=== PATIENT | female | born 1970 | race Hispanic/Latino ===

== ENCOUNTER 2019-08-24 15:48 | Emergency (ER) | payer OTHER ==
[~2019-08-24] VITALS: Ht 152.4 cm; Wt 80.7 kg
[2019-08-24] MEDS ORDERED: ONDANSETRON HCL 4 MG ORAL DISINTEGRATING TAB PO ONE (16:45)
[2019-08-24] MEDS ORDERED: ACETAMINOPHEN 325 MG TAB PO ONE (16:45)
[2019-08-24] MEDS ORDERED: ZOFRAN4 MG PO (17:37)
--- NOTE | 2019-08-24 17:41 | NUR ---
NO VOMITING NOTED, PO CHALLENGE COMPLETED, PT STATES SHE DOES FEEL A LITTLE BETTER
--- NOTE | 2019-08-24 17:58 | Emergency Department Note ---
History of Present Illnes History of Present Illness Chief Complaint: COVID PUI History of Present Illness This is a 49 year old female who presents with nausea and vomiting. She's had cough, generalized muscle aches and malaise for 6 days. She states she's had to cover test since that time but has not received the results yet. She denies any martinez diarrhea, however since she says that her stools have been very soft. She says that she vomits whenever she tries to take anything by mouth over the last 48 hours. She is on Cipro for UTI, and is on Zithromax for her respiratory symptoms. Denies a shortness of breath and has no chest pain. She's had no known COVID + contacts or sick contacts. 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 She has been self isolating herself to her room since becoming symptomatic. Denies fever, however states she has been taking nonsteroidal anti-inflammatories for her generalized muscle aches. 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 Any updates have been documented here. Past Medical History Recent Fever: No Clinical Suspicion of Infectio: Yes New/Unexplained Change in Ment: No Past Medical History: None Past Surgical History: None Social History Smoking Cessation: Never Smoker Any Illegal Drug Use: No Review of Systems Review of Systems Constitutional: Reports malaise; Denies fever (Fever in ER, but patient denies fever @ home) EENTM: Reports throat pain; Denies throat swelling, Denies mouth pain, Denies mouth swelling Cardiovascular: Reports no symptoms Respiratory: Reports as per HPI, Reports cough Gastrointestinal: Reports as per HPI, Reports nausea, Reports vomiting; Denies constipation, Denies diarrhea Genitourinary: Reports no symptoms; Denies dysuria (results in some Cipro) Musculoskeletal: Reports no symptoms Neurological: Reports no symptoms Hematological/Lymphatic: Reports no symptoms Review of other systems: All other systems negative Physical Exam Related Data Allergies: Coded Allergies: No Known Allergies (Unverified , 08/24/19) Physical Exam CONSTITUTIONAL Constitutional: Present well-developed, Present well-nourished HENT HENT: Present normocephalic, Present atraumatic, Present oropharynx clear/moist, Present nose normal EYES NECK PULMONARY Pulmonary: Present effort normal, Present breath sounds normal, Present other (nonproductive cough) CARDIOVASCULAR Cardiovascular: Present regular rhythm, Present heart sounds normal, Present capillary refill normal, Present normal rate GASTROINTESTINAL Abdominal: Present soft, Present nontender, Present bowel sounds normal GENITOURINARY SKIN MUSCULOSKELETAL Musculoskeletal: Present ROM normal NEUROLOGICAL Neurological: Present alert, Present oriented x 3, Present no gross motor or sensory deficits PSYCHOLOGICAL Psychological: Present mood/affect normal, Present judgement normal Assessment & Plan Medical Decision Making MDM Patient with a COVID type symptoms including fever cough nausea vomiting. It is on Cipro for UTI. Urinalysis shows small leukocytes but negative nitrites. Patient to continue Cipro and recheck UA when done with antibiotics. Patient on Zithromax for respiratory complaint. Zofran controlled her nausea vomiting in the emergency room and patient tolerated by mouth fluid including by mouth medication. Patient instructed to a self isolated given strict return precautions and to have prompt follow-up. And written pressure for when necessary Zofran was given. #20 Reassessment Reassessment time: 17:31 Reassessment Patient feels better tolerated by mouth in the ER. Assessment & Plan Final Impression: (1) Nausea & vomiting (2) COVID-19 (3) UTI (urinary tract infection) Depart Disposition: HOME, SELF-long term Meds Active Scripts Ondansetron Hcl* (ZOFRAN*) 4 Mg Tablet, 4 MG PO Q6H for Nausea/Vomiting, #20 Prov:VIKAS KIMBROUGH MD 08/24/19 Medications in the ED Acetaminophen 975 mg ONCE ONCE PO Last administered on 08/24/19at 17:17; Admin Dose 975 MG; Start 08/24/19 at 16:45; Stop 08/24/19 at 17:11; Status DC Ondansetron HCl 4 mg ONCE ONCE PO Last administered on 08/24/19at 16:50; Admin Dose 4 MG; Start 08/24/19 at 16:45; Stop 08/24/19 at 17:11; Status DC VIKAS KIMBROUGH MD Aug 24, 2019 17:32
== END 2019-08-24 17:57 | disposition home or self-care (01) ==
LOC: FSED 16:05
DX: U07.1 COVID-19 (principal); R05 Cough; R11.2 Nausea with vomiting, unspecified; N39.0 Urinary tract infection, site not specified; R53.81 Other malaise
CPT/HCPCS: 81003; 99284; Q0162

== ENCOUNTER 2019-09-09 13:45 | Inpatient (IN) | payer OTHER ==
[~2019-09-09] VITALS: Ht 160 cm; Wt 80.7 kg
[~2019-09-09 13:45] MED LIST: ZOFRAN4 MG PO
[2019-09-09] MEDS ORDERED: CEFTRIAXONE SOD 1 GM/NS 50 ML 50 ML IV ONE (14:15)
[2019-09-09] MEDS ORDERED: METHYLPREDNISOLONE SOD SUCC 125 MG/2ML VIAL IV ONE (14:15)
[2019-09-09] MEDS ORDERED: ALBUTEROL SULFATE HFA 8GM INHALATION AEROSOL INH STA (14:25)
[2019-09-09] MEDS ORDERED: METHYLPREDNISOLONE SOD SUCC 125 MG/2ML VIAL ONE (14:41)
[2019-09-09] MEDS ORDERED: ALBUTEROL SULFATE HFA 8GM INHALATION AEROSOL INH ONE (14:41)
--- OUTSIDE RECORDS SUMMARY | 2019-09-09 15:07 | XMS REPORT | Continuity of Care Document ---
Author Author [facility] t Organization [facility] Address [facility] 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 Mechanic Name Role Phone NO, PCP PCP Unavailable Jose Cohn Attphys Elham Johnson Attphys Problems Condition Name Condition Details Condition Category Status Onset Date Resolution Date Last Treatment Date Treating Clinician Comments Source SOB SOB Active 08/24/2016 [facility] Diagnosis Act bebeto 2016-08-24 00:00:00 2016-08-25 11:47:00 amy Dupree FINGER LACERATION FING ER LACERATION Active 12/07/2011 [facility] Active 2011-12-07 16:15:00 2011-12-07 17:46:00 Edouard Dupree Urinary tract infection Problem Active [facility] Infection due to severe acute respiratory syndrome coronavir us 2 (SARS-CoV-2) Problem Active [facility] Nausea and vomiting Problem Active [facility] Scoliosis, unspecified Scol iosis, unspecified 08/28/2016 [facility] Problem 2016-08-28 04:14:51 Ash Dupree Shortness of breath Shor tness of breath 08/28/2016 [facility] Problem 2016-08-28 04:14:51 Ash Dupree Allergies, Adverse Reactions, Alerts Allergy Name Allergy Type Status Severity Reaction(s) Onset Date Inacti ve Date Treating Clinician Comments Source No Known Medication Allergies No Known Medication Allergies Active Edouard Dupree Social History Social Habit Start Date Stop Date Quantity Comments Source Social History 2016-08-26 04:59:00 2016-08-26 04:59:00 Edouard Dupree Sex Assigned At 1970 00:00:00 1970 00:00:00 Female [facility] Medications Ordered Medication Name Filled Medication Name Start Date Stop Da te Current Medication? Ordering Clinician Indication Dosage Frequency Signature (SIG) Comments Components Source Ondansetron Hcl (Zofran*) 4 Mg TABLET Ondansetron Hcl (Zofra n*) 4 Mg TABLET 2019-08-24 17:37:00 Yes 4 Every 6 Hours for Nausea/Vomiting [facility] tetanus-diphtheria toxoids adult intramuscular suspension 2011-12-07 22:18:00 No Parag Amado 0.5 ml, [place]: IM, Dosing Weight 72.727, kg, ONCE, STAT, Start date: 12/07/11 17:18:00, Stop date: 12/07/11 17:18:00 [facility] Tdap 2011-12-07 22:02:00 No Parga Amado 0.5 mL, Route: IM, Dosing Weight 72.727, kg, ONCE, Start date: 12/07/11 17:02:00, Stop date: 12/07/11 17:02:00 [facility] Vital Signs Vital Name Observation Time Observation Value Comments Source Body Temperature 2019-08-24 17:42:00 101.0 [degF] [facility] Weight 2019-08-24 16:00:00 178 [lb_av] [facility] BMI (Body Mass Index) 2019-08-24 16:00:00 34.8 kg/m2 [facility] Weight 2011-12-07 21:56:00 [facility] Height 2011-12-07 21:56:00 152.40 cm [facility] Procedures This patient has no known procedures. Plan of Care Planned Activity Planned Date Details Comments Source Instructions COVID-19: 04/21/2019 [facility] Instructions Urinary Tract Infection - Women [facility] Encounters Start Date/Time End Date/Time Encounter Type Admission Type Attendi [facility] Care Department Encounter ID Source 2019-08-24 16:05:00 2019-08-24 17:57:00 Departed Emergency Room [facility] [id number] [facility] 2019-01-31 11:09:00 2019-01-31 23:59:00 Outpatient Zach Cohn [facility] [id number] 2016-08-25 11:09:00 2016-08-25 23:59:00 Outpatient Pavan Johnson [facility] [id number] Results Test Description Test Time Test Comments Results Result Comments Source BREAST ULTRASOUND BILATERAL 2019-03-31 12:52:32 - BREAST ULTRASOUND BILATERALULTRASOUND OF BOTH BREASTS AND BOTH AXILLA: 03/31/2019CLINICAL: Abnormal mammogram. Comparison is made to exams dated 03/31/2019 mammogram, 09/06/2017 ultrasound biopsy, 09/06/2017 ultrasound, and 08/30/2017 ultrasound - [facility]-. Real-time ultrasound of both breasts and both axilla and clinical breast exam were performed. There is a benign biopsy proven 1 cm fibroadenoma in the right breast at 8 o'clock, 5 cm from the nipple. No abnormalities were seen sonographically in either axilla. Benign cysts and dilated ducts were seen bilaterally. IMPRESSION: BENIGN There is no sonographic evidence of malignancy. Patient has been informed that she has areas of dense breast tissue that could make it difficult to find a small cancer. A screening mammogram and supplemental ultrasound for dense breast tissue is recommended in 1 year.Joyce Dyson M.D. dm/:03/31/2019 12:52:32 Environmental Health Nurse: More [place] , [facility]-letter sent: BIRADS 1-2 Combo FU Letter Ultrasound BI-RADS: 2 Benign DIAG MAMM LEFT [place] CAD DIGITAL 2019-03-31 12:49:38 - DIAG MAMM LEFT [place] CAD DIGITALUNILATERAL LEFT DIGITAL DIAGNOSTIC MAMMOGRAM 3D/2D WITH CAD: 03/31/2019CLINICAL: Abnormal Mammogram. Digital breast tomosynthesis was performed in addition to routine CC and MLO views. Current mammographic images were evaluated by either a [employer] M-Vu or a [email or web address] ImageChecker CAD (computer aided detection system). Comparison is made to exams dated 03/15/2019 mammogram, 09/06/2017 mammogram, and 08/30/2017 mammogram - [facility]-. The tissue of the left breast is extremely dense, which lowers the sensitivity of mammography. No suspicious mass, architectural distortion, malignant type calcification, or lymph node abnormality detected. IMPRESSION: INCOMPLETE: ADDITIONAL IMAGING EVALUATION NEEDEDBilateral ultrasound pending for additional evaluation. Joyce Dyson M.D. dm/:03/31/2019 12:49:38 Entry: [facility] 04/14/2019 11:23:04Imaging Technologist: Niki MATOS, [facility]Maogram BI-RADS: 0 Incomplete: Additional Imaging Evaluation Needed DIAG MAMM LEFT [place] CAD DIGITAL 2019-03-31 12:49:38 - DIAG MAMM LEFT [place] CAD DIGITALUNILATERAL LEFT DIGITAL DIAGNOSTIC MAMMOGRAM 3D/2D WITH CAD: 03/31/2019CLINICAL: Abnormal Mammogram. Digital breast tomosynthesis was performed in addition to routine CC and MLO views. Current mammographic images were evaluated by either a [employer] M-Vu or a [email or web address] ImageBlast Rampcker CAD (computer aided detection system). Comparison is made to exams dated 03/15/2019 mammogram, 09/06/2017 mammogram, and 08/30/2017 mammogram - [facility]-. The tissue of the left breast is extremely dense, which lowers the sensitivity of mammography. No suspicious mass, architectural distortion, malignant type calcification, or lymph node abnormality detected. IMPRESSION: INCOMPLETE: ADDITIONAL IMAGING EVALUATION NEEDEDBilateral ultrasound pending for additional evaluation. Joyce Dyson M.D. dm/:03/31/2019 12:49:38 Entry: [facility] 04/14/2019 11:23:04Imaging Technologist: Niki MATOS, [facility]-Mammogram BI-RADS: 0 Incomplete: Additional Imaging Evaluation Needed SCR MAMM BILATERAL [place]ORT[place] CAD DIGITAL 2019-03-17 13:58:53 - SCR MAMM BILATERAL CHACORT[place] CAD DIGITALBILATERAL DIGITAL SCREENING MAMMOGRAM 3D/2D WITH CAD: 03/15/2019Digital breast tomosynthesis was performed in addition to routine CC and MLO views. Current mammographic images were evaluated by either a [employer] M-Vu or a [email or web address] ImageBlast Rampcker CAD (computer aided detection system). Comparison is made to exams dated 08/17/2017 mammogram, 03/21/2012 mammogram, and 02/10/2011 mammogram - [facility]. There are scattered fibroglandular tissues in both breasts. There is a left breast oval mass on MLO view, superiorly, at posterior depth.No other suspicious mass, architectural distortion, malignant type calcification, or lymph node abnormality detected. IMPRESSION: INCOMPLETE: ADDITIONAL IMAGING EVALUATION NEEDEDLEFT BREAST: Oval mass on MLO view, superiorly, at posterior depth. Ultrasound and possible tomosynthesis spot compression are recommended at this time.Shubham Lyle M.D. qn/:03/17/2019 13:58:53 Entry: - 03/22/2019 07:50:15copy to: Meliton Amado MD, ph: [phone], fax: [phone] Technologist: Mana MATOS, [facility]FW[facility] sent: Additional Imaging Mammogram BI-RADS: 0 Incomplete: Additional Imaging Evaluation Needed
--- OUTSIDE RECORDS SUMMARY | 2019-09-09 15:07 | XMS REPORT | Continuity of Care Document ---
Author Author Edouard Dupree IPexpert JOHNNYAaron Whittaker [facility] [employer] Address Unknown Phone Unavailable Care Team Providers Care Graphite Disk Assembler Name Role Phone [facility] [employer] Unavailable Un available Problems Problem Status Onset Date Classification Date Reported Comments Source SOB Active 0 08/24/2016 [facility] FINGER LACERATION Active 12/07/2011 [facility] Scoliosis, unspecified 08/28/2016 [facility] Shortness of breath 08/28/2016 [facility] Medications Medication Details Route Status Patient Instructions Ordering Provider Order Date Source tetanus-diphtheria toxoids adult intramu scular suspension 0.5 ml, Route: IM, Dosing Weight 72.727, kg, ONCE, STAT, Start date: 12/07/11 17:18:00, Stop date: 12/07/11 17:18:00 IM No Longer Active Amado 12/07/2011 [facility] Tdap 0.5 mL, Route: IM, Dosing Weight 72.727, kg, ONCE, Start date: 12/07/11 17:02:00, Stop date: 12/07/11 17:02:00 IM No Longer Active Amado 12/07/2011 [facility] Allergies, Adverse Reactions, Alerts Substance Category Reaction Severity Reaction type Status Date Reported Comments Source No Known Medication Allergies Assertion Drug aller gy CONNIE [facility] Immunizations Immunization Date Given Site Status Last Updated Comments Source tetanus-diphtheria toxoids 02/2011 completed F minnien [facility] tetanus-diphtheria toxoids 02/2011 Left Deltoid completed Jose [facility] tetanus-diphtheria toxoids 02/2011 Left Deltoid completed Jose CONNIE [place] Results No Data Provided for This Section Pathology Reports No Data Provided for This Section Diagnostic Reports Report Value Date Source Hand 3 views DX EXAM: Hand 3 v iews DX HISTORY: - M79.641 Pain in right hand COMPARISON: None 3 views of the right hand. No fracture or dislocation is seen. No radiographically apparent degenerative change is seen. IMPRESSION: No acute abnormality. 01/31/2019 [facility] [place] Chest 2 views DX Study: Chest 2 views DX 08/25/2016 10:30 AM CDT Clinical Indication: shortness of breath - shortness of breath; Comparison: None. FINDINGS: Rotoscoliosis. The cardiomediastinal silhouette and pulmonary vasculature are within normal limits for projection and degree of inspiration. No lobar consolidation, effusion, or pneumothorax. No pleural abnormalities are seen. No acute bony abnormalities. IMPRESSION: No acute intrathoracic abnormalities. SL: [id number] 08/25/2016 [facility] Consultation Notes No Data Provided for This Section Discharge Summaries No Data Provided for This Section History and Physicals No Data Provided for This Section Vital Signs Vital Sign Value Date Comments Source Weight 72.727 12/07/2011 [facility] Height 152.40 cm 12/07/2011 [facility] Encounters Location Location Details Encounter Type Encounter Number Reason For Visit Attending Provider ADM Date DC Date Status Source [facility] Emergency [id number] COCO KHAN 12/07/2011 12/07/2011 Discharged [facility] Outpatient [id number] Pavan Johnson 08/25/2016 08/26/2016 [facility] [place] [facility] [id number] Zach Cohn 01/31/2019 02/01/2019 [facility] [place] Procedures No Data Provided for This Section Assessment and Plan No Data Provided for This Section Plan of Care No Data Provided for This Section Social History Social History Date Source No data available for this section 02/01/2019 CONN[facility] [place] No data available for this section 08/26/2016 [facility] Family History No Data Provided for This Section Advance Directives No Data Provided for This Section Functional Status No Data Provided for This Section
--- NOTE | 2019-09-09 15:16 | Diagnostic Imaging Report ---
X-ray chest frontal view History: Covid positive. Cough. Weakness. Comparison: None Findings: Significant rotation on this exam. Central airways: Unremarkable Cardiac silhouette: Unremarkable Mediastinal silhouettes: Unremarkable Pleura: No pleural effusion, pneumothorax or thickening Diaphragms: Unremarkable Lungs: Bilateral diffuse axial interstitial infiltrates. This is consistent with the possibility of interstitial pneumonitis such as a viral pneumonia. Skeletal structures: Unremarkable Extrathoracic soft tissues: Unremarkable Impression: Suboptimal exam. Suspected bilateral interstitial pneumonitis. Signed by: Taurus Strange MD on 09/09/2019 3:13 PM
[2019-09-09 15:27] LABS: BASOPHILS # (AUTO) 0.1 (0.0-0.1); BASOPHILS % 0.3 % (0.0-1.0); EOSINOPHILS % 0.3 % (0.0-6.0); HEMATOCRIT 39.6 % (34.2-44.1); HEMOGLOBIN 13.9 g/dL (12.0-16.0); LYMPHOCYTES % 18.9 % (18.0-39.1); MEAN CORPUSCULAR HEMOGLOBIN 32.2 pg (28-32); MEAN CORPUSCULAR HGB CONC 35.1 g/dL (31-35); MEAN CORPUSCULAR VOLUME 91.7 fL (81-99); MONOCYTES # (AUTO) 1.5 (0.2-0.8); MONOCYTES % 9.2 % (4.4-11.3); NEUTROPHILS # (AUTO) 11.2 (2.1-6.9); NEUTROPHILS % 69.7 % (38.7-80.0); PLATELET COUNT 532 x10e3/uL (140-360); RED BLOOD COUNT 4.32 x10e6/uL (3.6-5.1); RED CELL DISTRIBUTION WIDTH 12.6 % (11.7-14.4)
[2019-09-09 15:38] LABS: INR 0.89; PROTHROMBIN TIME 12.5 seconds (11.9-14.5)
[2019-09-09 15:43] LABS: PARTIAL THROMBOPLASTIN TIME 21.6 seconds (23.8-35.5)
[2019-09-09 15:46] LABS: ALANINE AMINOTRANSFERASE 49 IU/L (0-55); ALBUMIN 3.3 g/dL (3.5-5.0); ALBUMIN/GLOBULIN RATIO 0.9 (0.8-2.0); ALKALINE PHOSPHATASE 70 IU/L (40-150); ANION GAP 13.7 mmol/L (8-16); BLOOD UREA NITROGEN 19 mg/dL (7-26); BUN/CREATININE RATIO 25 (6-25); CALCIUM 8.6 mg/dL (8.4-10.2); CARBON DIOXIDE 24 mmol/L (22-29); CHLORIDE 107 mmol/L (98-107); CREATINE KINASE 22 IU/L (29-168); CREATININE, SERUM 0.76 mg/dL (0.57-1.11); EST GLOMERULAR FILTRATION RATE > 60 ML/MIN (60-); GLUCOSE 92 mg/dL (74-118); MAGNESIUM 1.9 MG/DL (1.3-2.1); POTASSIUM 3.7 mmol/L (3.5-5.1); SODIUM 141 mmol/L (136-145)
--- NOTE | 2019-09-09 16:07 | Emergency Department Note ---
History of Present Illnes History of Present Illness Chief Complaint: sob, wheezing , chest tightness History of Present Illness This is a 49 year old female . Historian: Patient Arrival Mode: Car Additional Treatment BACK END ARCHITECT: was doing well until 08/17 then itchy throat, f/c, History limited by: condition of the patient Web Press Operator Required: No Onset (how long ago): day(s) (3) Location: bilateral chest Quality: tightness Radiation: Reports non-radiation Severity: moderate Onset quality: gradual Duration (how long): day(s) (3) Timing of current episode: constant Progression: worsening Chronicity: new Associated symptoms: Reports cough, Reports nausea/vomiting, Reports shortness of breath Risk factors: dx with covid on 08/21, chest chest on 09/05 showed bilat pneumonia/h/o asthma Past Medical/Family History Physician Review I have reviewed the patient's past medical and family history. Any updates have been documented here. Past Medical History Recent Fever: No Clinical Suspicion of Infectio: Yes New/Unexplained Change in Ment: No Past Medical History: Asthma Past Surgical History: None Social History Smoking Cessation: Never Smoker Counseling Performed: No Alcohol Use: Social Any Illegal Drug Use: No TB Exposure/Symptoms: No Physically hurt or threatened: No Family History Family history of heart diseas: No Other Any Pre-Existing Lines (PICC,: No Is patient up to date on immun: No Review of Systems Review of Systems Constitutional: Reports as per HPI EENTM: Reports as per HPI Cardiovascular: Reports as per HPI Respiratory: Reports as per HPI, Reports wheezing Gastrointestinal: Reports as per HPI Genitourinary: Reports no symptoms Musculoskeletal: Reports no symptoms Integumentary: Reports no symptoms Neurological: Reports no symptoms Psychological: Reports no symptoms Endocrine: Reports no symptoms Hematological/Lymphatic: Reports no symptoms Review of other systems: All other systems negative Physical Exam Related Data Allergies: Coded Allergies: No Known Allergies (Unverified , 08/24/19) Triage Vital Signs Vital Signs Date Time Temp Pulse Resp B/P (MAP) Pulse Ox O2 Delivery O2 Flow Rate FiO2 09/09/19 13:45 98.7 81 18 124/94 98 Room Air Vital signs reviewed: Yes Physical Exam CONSTITUTIONAL Constitutional: Present well-developed, Present well-nourished HENT HENT: Present normocephalic, Present atraumatic, Present oropharynx clear/moist, Present nose normal HENT L/R: Present left ext ear normal, Present right ext ear normal EYES Eyes: Reports PERRL, Reports conjunctivae normal NECK Neck: Present ROM normal, Present supple PULMONARY Pulmonary: Present effort normal, Present other (bilateral wheezes); Absent respiratory distress CARDIOVASCULAR Cardiovascular: Present regular rhythm, Present heart sounds normal, Present capillary refill normal, Present normal rate GASTROINTESTINAL Abdominal: Present soft, Present nontender, Present bowel sounds normal GENITOURINARY Genitourinary: Present exam deferred SKIN Skin: Present warm, Present dry MUSCULOSKELETAL Musculoskeletal: Present ROM normal NEUROLOGICAL Neurological: Present alert, Present oriented x 3, Present no gross motor or sensory deficits PSYCHOLOGICAL Psychological: Present mood/affect normal, Present judgement normal Results Laboratory Result Diagram: 09/09/19 1406 09/09/19 1406 Laboratory Laboratory Tests Test 09/09/19 14:38 09/09/19 14:06 White Blood Count 15.99 x10e3/uL (4.8-10.8) Red Blood Count 4.32 x10e6/uL (3.6-5.1) Hemoglobin 13.9 g/dL (12.0-16.0) Hematocrit 39.6 % (34.2-44.1) Mean Corpuscular Volume 91.7 fL (81-99) Mean Corpuscular Hemoglobin 32.2 pg (28-32) Mean Corpuscular Hemoglobin Concent 35.1 g/dL (31-35) Red Cell Distribution Width 12.6 % (11.7-14.4) Platelet Count 532 x10e3/uL (140-360) Neutrophils (%) (Auto) 69.7 % (38.7-80.0) Lymphocytes (%) (Auto) 18.9 % (18.0-39.1) Monocytes (%) (Auto) 9.2 % (4.4-11.3) Eosinophils (%) (Auto) 0.3 % (0.0-6.0) Basophils (%) (Auto) 0.3 % (0.0-1.0) Neutrophils # (Auto) 11.2 (2.1-6.9) Lymphocytes # (Auto) 3.0 (1.0-3.2) Monocytes # (Auto) 1.5 (0.2-0.8) Eosinophils # (Auto) 0.0 (0.0-0.4) Basophils # (Auto) 0.1 (0.0-0.1) Absolute Immature Granulocyte (auto 0.25 x10e3/uL (0-0.1) Prothrombin Time 12.5 seconds (11.9-14.5) Prothromb Time International Ratio 0.89 Activated Partial Thromboplast Time 21.6 seconds (23.8-35.5) Sodium Level 141 mmol/L (136-145) Potassium Level 3.7 mmol/L (3.5-5.1) Chloride Level 107 mmol/L (98-107) Carbon Dioxide Level 24 mmol/L (22-29) Anion Gap 13.7 mmol/L (8-16) Blood Urea Nitrogen 19 mg/dL (7-26) Creatinine 0.76 mg/dL (0.57-1.11) Estimat Glomerular Filtration Rate > 60 ML/MIN (60-) BUN/Creatinine Ratio 25 (6-25) Glucose Level 92 mg/dL (74-118) Lactic Acid Level 1.5 mmol/L (0.5-2.0) Calcium Level 8.6 mg/dL (8.4-10.2) Magnesium Level 1.9 MG/DL (1.3-2.1) Total Bilirubin 0.6 mg/dL (0.2-1.2) Aspartate Amino Transf (AST/SGOT) 16 IU/L (5-34) Alanine Aminotransferase (ALT/SGPT) 49 IU/L (0-55) Alkaline Phosphatase 70 IU/L (40-150) Creatine Kinase 22 IU/L (29-168) Creatine Kinase MB 0.50 ng/mL (0-5.0) Troponin I < 0.001 ng/mL (0-0.300) Total Protein 7.1 g/dL (6.5-8.1) Albumin 3.3 g/dL (3.5-5.0) Globulin 3.8 g/dL (2.3-3.5) Albumin/Globulin Ratio 0.9 (0.8-2.0) Imaging Imaging results reviewed: Yes Impressions [place] [address] Patient Name: JOHNNY CARTY MR #: [id number] : 1970 Age/Sex: 49/F Req #: [id number] Adm Physician: Ordered by: CHARLES CAM Report #: [id number] Location: [facility] Room/Bed: Procedure: [id number] HOPD/CXR 1 VEW - HOPD Exam Date: 09/09/19 Exam Time: 1443 REPORT STATUS: Signed X-ray chest frontal view History: Covid positive. Cough. Weakness. Comparison: None Findings: Significant rotation on this exam. Central airways: Unremarkable Cardiac silhouette: Unremarkable Mediastinal silhouettes: Unremarkable Pleura: No pleural effusion, pneumothorax or thickening Diaphragms: Unremarkable Lungs: Bilateral diffuse axial interstitial infiltrates. This is consistent with the possibility of interstitial pneumonitis such as a viral pneumonia. Skeletal structures: Unremarkable Extrathoracic soft tissues: Unremarkable Impression: Suboptimal exam. Suspected bilateral interstitial pneumonitis. Signed by: Loida Cronin MD on 09/09/2019 3:13 PM Dictated By: LOIDA CRONIN MD 12 Transcribed By: CARLEE on 09/09/19 151 COPY TO: CHARLES CAM~ Procedures 12 Lead ECG Interpretation ECG Interpretation : ECG: ECG 1 Web Press Operator: Interpreted by ED physician Date: Sep 09, 2019 Time: 13:55 Prior ECG tracings: reviewed Rhythm: sinus rhythm Rate: normal QRS axis: normal ST segments normal: Yes T waves normal: Yes Q waves: all Clinical Impression: normal ECG Critical Care Time Comments SPOKE TO DR CONSTANTINO AT 1550HRS AND ACCEPTS ADMISSION OF PT Assessment & Plan Medical Decision Making MDM admit Reassessment Reassessment time: 18:00 Reassessment symptoms improved Assessment & Plan Final Impression: (1) Asthma exacerbation (2) Bilateral pneumonia (3) COVID-19 Depart Disposition: ADMITTED Last Vital Signs Date Time Temp Pulse Resp B/P (MAP) Pulse Ox O2 Delivery O2 Flow Rate FiO2 09/09/19 13:45 98.7 81 18 124/94 98 Room Air Home Meds Active Scripts Ondansetron Hcl* (ZOFRAN*) 4 Mg Tablet, 4 MG PO Q6H for Nausea/Vomiting, #20 Prov:VIKAS KIMBROUGH MD 08/24/19 Medications in the ED Ceftriaxone Sodium 50 ml @ 100 mls/hr ONCE ONCE IV Last administered on 09/09/19at 14:50; Admin Dose 100 MLS/HR; Start 09/09/19 at 14:15; Stop 09/09/19 at 1 4:45; Status DC Methylprednisolone Sodium Succinate 125 mg ONCE ONCE IV Last administered on 09/09/19at 14:50; Admin Dose 125 MG; Start 09/09/19 at 14:15; Stop 09/09/19 at 14:25; Status DC Albuterol 1 gm ONCE STAT INH Last administered on 09/09/19at 15:00; Admin Dose 1 GM; Start 09/09/19 at 14:25; Stop 09/09/19 at 14:27; Status DC Methylprednisolone Sodium Succinate 125 mg STK-MED ONCE .ROUTE ; Start 09/09/19 at 14:41; Stop 09/09/19 at 14:35; Status DC Albuterol 8 gm STK-MED ONCE INH ; Start 09/09/19 at 14:41; Stop 09/09/19 at 14:36; Status DC CHARLES CAM Sep 09, 2019 16:06
[2019-09-09] MEDS ORDERED: ALBUTEROL SULF 0.083% NEB SOLN 3 ML NEB NEB SCH (16:30)
--- OUTSIDE RECORDS SUMMARY | 2019-09-09 16:44 | XMS REPORT | Continuity of Care Document ---
Author Author Edouard Dupree [employer] JOHNNYAaron Whittaker [facility] [employer] Address Unknown Phone Unavailable Care Team Providers Care Pharmacy Technician Trainee Name Role Phone [facility] [employer] Information Search Initiatives Unavailable Un available Problems Problem Status Onset Date Classification Date Reported Comments Source SOB Active 0 08/24/2016 [facility] FINGER LACERATION Active 12/07/2011 [facility] Scoliosis, unspecified 08/28/2016 [facility] Shortness of breath 08/28/2016 [facility] Medications Medication Details Route Status Patient Instructions Ordering Provider Order Date Source tetanus-diphtheria toxoids adult intramu scular suspension 0.5 ml, Route: IM, Dosing Weight 72.727, kg, ONCE, STAT, Start date: 12/07/11 17:18:00, Stop date: 12/07/11 17:18:00 IM No Longer Active Amado 12/07/2011 [facility] Tdap 0.5 mL, Route: IM, Dosing Weight 72.727, kg, ONCE, Start date: 12/07/11 17:02:00, Stop date: 12/07/11 17:02:00 IM No Longer Active Amado 12/07/2011 [facility] Allergies, Adverse Reactions, Alerts Substance Category Reaction Severity Reaction type Status Date Reported Comments Source No Known Medication Allergies Assertion Drug aller gy CONNIE Mon[place] Immunizations Immunization Date Given Site Status Last Updated Comments Source tetanus-diphtheria toxoids 02/2011 completed F minnien [facility] tetanus-diphtheria toxoids 02/2011 Left Deltoid completed Jose [...] seen. IMPRESSION: No acute abnormality. 01/31/2019 [facility] [place] Chest 2 views DX Study: Chest 2 views DX 08/25/2016 10:30 AM CDT Clinical Indication: shortness of breath - shortness of breath; Comparison: None. FINDINGS: Rotoscoliosis. The cardiomediastinal silhouette and pulmonary vasculature are within normal limits for projection and degree of inspiration. No lobar consolidation, effusion, or pneumothorax. No pleural abnormalities are seen. No acute bony abnormalities. IMPRESSION: No acute intrathoracic abnormalities. SL: [id number] 08/25/2016 [facility] Consultation Notes No Data Provided for This Section Discharge Summaries No Data Provided for This Section History and Physicals No Data Provided for This Section Vital Signs Vital Sign Value Date Comments Source Weight 72.727 12/07/2011 [facility] Height 152.40 cm 12/07/2011 [facility] Encounters Location Location Details Encounter Type Encounter Number Reason For Visit Attending Provider ADM Date DC Date Status Source [facility] Emergency [id number] COCO KHAN 12/07/2011 12/07/2011 Discharged [facility] Outpatient [id number] Pavan Johnson 08/25/2016 08/26/2016 [facility] [place] [facility] [id number] Zach Cohn 01/31/2019 02/01/2019 CON[place] [place] Procedures No Data Provided for This Section Assessment and Plan No Data Provided for This Section Plan of Care No Data Provided for This Section Social History Social History Date Source No data available for this section 02/01/2019 CONNIE [place] No data available for this section 08/26/2016 [facility] Family History No Data Provided for This Section Advance Directives No Data Provided for This Section Functional Status No Data Provided for This Section
--- OUTSIDE RECORDS SUMMARY | 2019-09-09 16:44 | XMS REPORT | Continuity of Care Document ---
Author Author [facility] t Organization [facility] Address Critical access hospital [address] [place] [address] Phone Unavailable Care Team Providers Care Auto Body Straightener Name Role Phone NO, PCP PCP Unavailable Malgorzata CAM Attphys Unavailable Jose Cohn Attphys Elham Johnson Attphys Problems Condition Name Condition Details Condition Category Status Onset Date Resolution Date Last Treatment Date Treating Clinician Comments Source SOB SOB Active 08/24/2016 [facility] Diagnosis Act bebeto 2016-08-24 00:00:00 2016-08-25 11:47:00 M amy Dupree FINGER LACERATION FING ER LACERATION Active 12/07/2011 [facility] Active 2011-12-07 16:15:00 2011-12-07 17:46:00 Edouard Dupree Urinary tract infection Problem Active [facility] Infection due to severe acute respiratory syndrome coronavir us 2 (SARS-CoV-2) Problem Active [facility] Nausea and vomiting Problem Active [facility] Scoliosis, unspecified Scol iosis, unspecified 08/28/2016 [facility] Problem 2016-08-28 04:14:51 [facility] Shortness of breath Shor tness of [...] Source Social History 2016-08-26 04:59:00 2016-08-26 04:59:00 [facility] Sex Assigned At 1970 00:00:00 1970 00:00:00 Female [facility] Medications Ordered Medication Name Filled Medication Name Start Date Stop Da te Current Medication? Ordering Clinician Indication Dosage Frequency Signature (SIG) Comments Components Source Ondansetron Hcl (Zofran*) 4 Mg TABLET Ondansetron Hcl (Zofra n*) 4 Mg TABLET 2019-08-24 17:37:00 Yes 4 Every 6 Hours for Nausea/Vomiting [facility] tetanus-diphtheria toxoids adult intramuscular suspension 2011-12-07 22:18:00 No Parag Amado 0.5 ml, Ro aj: IM, Dosing Weight 72.727, kg, ONCE, STAT, Start date: 12/07/11 17:18:00, Stop date: 12/07/11 17:18:00 [facility] Tdap 2011-12-07 22:02:00 No Parag Amado 0.5 mL, Route: IM, Dosing Weight 72.727, kg, ONCE, Start date: 12/07/11 17:02:00, Stop date: 12/07/11 17:02:00 [facility] Vital Signs Vital Name Observation Time Observation Value Comments Source Body Temperature 2019-08-24 17:42:00 101.0 [degF] [facility] Weight 2019-08-24 16:00:00 178 [lb_av] [facility] BMI (Body Mass Index) 2019-08-24 16:00:00 34.8 kg/m2 [facility] Weight 2011-12-07 21:56:00 [facility] Height 2011-12-07 21:56:00 152.40 cm [facility] Procedures This patient has no known procedures. Plan of Care Planned Activity Planned Date Details Comments Source Instructions COVID-19: 04/21/2019 [facility] Instructions Urinary Tract Infection - Women [facility] Encounters Start Date/Time End Date/Time Encounter Type Admission Type Attendi [facility] Care Department Encounter ID Source 2019-08-24 16:05:00 2019-08-24 17:57:00 Departed Emergency Room [facility] [id number] [facility] 2019-01-31 11:09:00 2019-01-31 23:59:00 [facility] [id number] 2016-08-25 11:09:00 2016-08-25 23:59:00 Outpatient Pavan [facility] [id number] Results Test Description Test Time Test Comments Results Result Comments Source CXR 1 W - HOPD 2019-09-09 15:10:00 [place] [address] Patient Name: JOHNNY CARTY MR #: [id number] : 1970 Age/Sex: 49/F Req #: [id number] Adm Physician: Ordered by: CHARLES CAM Report #: [id number] Location: [facility] Room/Bed: Procedure: [id number] HOPD/CXR 1 [facility] Exam Date: 09/09/19 Exam Time: 1443 REPORT STATUS: Signed X-ray chest frontal view History: Covid positive. Cough. Weakness. Comparison: None Findings: Significant rotation on this exam. Central airways: Unremarkable Cardiac silhouette: Unremarkable Mediastinal silhouettes: Unremarkable Pleura: No pleural effusion, pneumothorax or thickening Diaphragms: Unremarkable Lungs: Bilateral diffuse axial interstitial infiltrates. This is consistent with the possibility of interstitial pneumonitis such as a viral pneumonia. Skeletal structures: Unremarkable Extrathoracic soft tissues: Unremarkable Impression: Suboptimal exam. Suspected bilateral interstitial pneumonitis. Signed by: Taurus Cronin MD on 09/09/2019 3:13 PM Dictated By: TAURUS CRONIN MD 12 Transcribed By: CARLEE on 09/09/193 COPY TO: DORINACHARLESFRANCK MARTÍNEZ BREAST ULTRASOUND BILATERAL 2019-03-31 12:52:32 - BREAST ULTRASOUND BILATERALULTRASOUND OF BOTH BREASTS AND BOTH AXILLA: 03/31/2019CLINICAL: Abnormal mammogram. Comparison is made to exams dated 03/31/2019 mammogram, 09/06/2017 ultrasound biopsy, 09/06/2017 ultrasound, and [facility]30[facility] Real-time ultrasound of both breasts and both [...] in 1 year.Joyce Dyson M.D. dm/:03/31/2019 12:52:32 Building Maintenance Engineer: [place] , [facility] sent: BIRADS 1-2 Combo FU Letter Ultrasound BI-RADS: 2 Benign DIAG MAMM LEFT [place] CAD DIGITAL 2019-03-31 12:49:38 - DIAG MAMM LEFT [place] CAD DIGITALUNILATERAL LEFT DIGITAL DIAGNOSTIC MAMMOGRAM 3D/2D WITH CAD: 03/31/2019CLINICAL: Abnormal Mammogram. Digital breast tomosynthesis was performed in addition to routine CC and MLO views. Current mammographic images were evaluated by either a [employer] M-Vu or a [employer] ImageChecker CAD (computer aided detection system). Comparison is made to exams dated 03/15/2019 mammogram, 09/06/2017 mammogram, and 08/30/2017 [facility]. The tissue of the left breast is extremely dense, which lowers the sensitivity of mammography. No suspicious mass, architectural distortion, malignant type calcification, or lymph node abnormality detected. IMPRESSION: INCOMPLETE: ADDITIONAL IMAGING EVALUATION NEEDEDBilateral ultrasound pending for additional evaluation. Joyce Dyson M.D. dm/:03/31/2019 12:49:38 Entry: [facility] 04/14/2019 11:23:04Imaging Technologist: Niki MATOS [facility]-Mamm[facility] BI-RADS: 0 Incomplete: Additional Imaging Evaluation Needed DIAG MAMM LEFT [place] CAD DIGITAL 2019-03-31 12:49:38 - DIAG MAMM LEFT [place] CAD DIGITALUNILATERAL LEFT DIGITAL DIAGNOSTIC MAMMOGRAM 3D/2D WITH CAD: 03/31/2019CLINICAL: Abnormal Mammogram. Digital breast tomosynthesis was performed in addition to routine CC and MLO views. Current mammographic images were evaluated by either a [employer] M-Vu or a [employer]guana[employer]ee in Chinacker CAD (computer aided detection system). Comparison is made to exams dated 03/15/2019 mammogram, 09/06/2017 mammogram, and 08/30/2017 [facility]. The tissue of the left breast is extremely dense, which lowers the sensitivity of mammography. No suspicious mass, architectural distortion, malignant type calcification, or lymph node abnormality detected. IMPRESSION: INCOMPLETE: ADDITIONAL IMAGING EVALUATION NEEDEDBilateral ultrasound pending for additional evaluation. Joyce Dyson M.D. dm/:03/31/2019 12:49:38 Entry: [facility] 04/14/2019 11:23:04Imaging Technologist: Marjorie Landeros [facility]-Mammogram BI-RADS: 0 Incomplete: Additional Imaging Evaluation Needed SCR MAMM BILATERAL [place] CAD DIGITAL 2019-03-17 13:58:53 - SCR MAMM BILATERAL [place] CAD DIGITALBILATERAL DIGITAL SCREENING MAMMOGRAM 3D/2D WITH CAD: 03/15/2019Digital breast tomosynthesis was performed in addition to routine CC and MLO views. Current mammographic images were evaluated by either a [employer] M-Vu or a [employer] ImageIguanaBee in Chinacker CAD (computer aided detection system). Comparison is made to exams dated 08/17/2017 mammogram, 03/21/2012 mammogram, and 02/10/2011 [facility]. There are scattered fibroglandular tissues in both [...] 03/22/2019 07:50:15copy to: Meliton Amado MD, ph: [phone], fax: [phone] Technologist: Mana MATOS, [facility]-FWletter sent: Additional Imaging Mammogram BI-RADS: 0 Incomplete: Additional Imaging Evaluation Needed
[2019-09-09] MEDS ORDERED: TEMAZEPAM 7.5 MG CAP PO PRN (17:30)
[2019-09-09] MEDS ORDERED: ONDANSETRON HCL INJ 2MG/ML 2ML 2 MG/ML VIAL IV PRN (17:30)
[2019-09-09] MEDS ORDERED: ACETAMINOPHEN 325 MG TAB PO PRN (17:30)
[2019-09-09] MEDS ORDERED: HYDRALAZINE HCL 20 MG/ML VIAL IV PRN (17:30)
[2019-09-09] MEDS ORDERED: POLYETHYLENE GLYCOL 3350 17 GM PACK PO PRN (17:30)
[2019-09-09] MEDS ORDERED: IPRATROPIUM BROMIDE 0.02% 2.5 ML NEB NEB SCH (19:00)
--- NOTE | 2019-09-09 19:08 | NUR ---
RECEIVED PATIENT FROM [facility]. ALERT AND ORIENTED. PATIENT HAS NO COMPLAIN OF SHORTNESS OF BREATH. ASSISTED TO BED. BED IN LOWEST POSITION, LOCKED AND SIDE RAILS UP.
[2019-09-09 20:00] VITALS: BP 117/70
[2019-09-09] MEDS ORDERED: CETIRIZINE HCL5 MG PO (20:26)
[2019-09-09] MEDS ORDERED: COMBIVENT RESPIM4 GM IH (20:26)
[2019-09-09] MEDS ORDERED: ZINC SULFATE220 MG PO (20:26)
[2019-09-09] MEDS ORDERED: PROVENTIL HFA6.7 GM INH (20:26)
[2019-09-09] MEDS ORDERED: VITAMIN C500 M1 PO (20:26)
[2019-09-09] MEDS ORDERED: DEXAMETHASONE4 MG PO (20:26)
[2019-09-09 20:33] VITALS: BP 117/70
[2019-09-09] MEDS ORDERED: TEMAZEPAM 15 MG CAP PO PRN (21:00)
[2019-09-09] MEDS ORDERED: ALBUTEROL SULFATE HFA 8GM INHALATION AEROSOL INH PRN (21:15)
[2019-09-09] MEDS: METHYLPREDNISOLONE SOD SUCC 125 MG/2ML VIAL IV SCH (21:34)
--- NOTE | 2019-09-09 21:50 | NUR ---
CONSULTATION FOR DR. JULIO CALLED THRU ANSWERING SERVICE. WAITING FOR CALL BACK.
[2019-09-09 22:17] VITALS: BP 117/70
[2019-09-09 23:37] LABS: CREATINE KINASE 18 IU/L (29-168)
[2019-09-10] VITALS (8 sets, daily range): BP systolic 114–128; BP diastolic 72–88
--- NOTE | 2019-09-10 02:36 | History and Physical ---
PRIMARY CARE PHYSICIAN: Dr. Zach Cohn. CONSULTING PHYSICIANS: Dr. Miles Olivares and Dr. Abilio Paige. CHIEF COMPLAINT: Cough. HISTORY OF PRESENT ILLNESS: The patient is a 49-year-old female, who admitted to the emergency department with 3-day complaints of shortness of breath, wheezing, chest tightness, that all began with having an itchy throat on 08/18/2019. She tested positive that week on 08/17. She reports that on Sunday her COVID test was negative. PAST MEDICAL HISTORY: Asthmatic bronchitis. PAST SURGICAL HISTORY: Tonsillectomy. FAMILY HISTORY: Both mother and father had heart problems and diabetes. 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 She lives with her and children. She denies any previous use of tobacco, alcohol, or illicit drugs. ALLERGIES: NO KNOWN ALLERGIES. REVIEW OF SYSTEMS: She states she has not had a fever in the last 5 days. Denies chills. She has lost her sense of taste and smell. Otherwise, no complaints of eyes, ears, nose, or throat at present. She has been having coughing, however, no shortness of breath. Currently not wearing oxygen. Denies any problems with genitourinary, psychiatric, integumentary, allergic, hematologic, or lymphatic systems. CARDIOVASCULAR: She does have palpitations at times. GASTROINTESTINAL: Denies any nausea, vomiting, diarrhea, or constipation. MUSCULOSKELETAL: Tired. NEUROLOGIC: Dizziness this morning, but none now. ENDOCRINE: Denies any history of diabetes. HOME MEDICATIONS: She takes vitamin C 500 mg daily, dexamethasone 6 mg twice a day, zinc sulfate 220 mg daily, Proventil HFA t.i.d. p.r.n. for shortness of breath, cetirizine 10 mg daily, and Combivent Respimat 4 g inhaler. PHYSICAL EXAMINATION: VITAL SIGNS: Temperature 98.7, blood pressure 122/70, heart rate was 114 and now 71, respirations was 30 and now 18, oxygen saturation 97%. Height 5 feet 0 inches. Weight 170 pounds, BMI of 34.75. GENERAL: Supine, in no acute distress. LUNGS: Generally clear. No supplemental oxygen. No elevated work of breathing present. HEENT: EOMI. NECK: Supple. CARDIOVASCULAR: Regular rate and rhythm. No murmur. ABDOMEN: Bowel sounds positive. Soft, obese. No guarding. EXTREMITIES: No pitting edema. No clubbing, cyanosis, or notable swelling. No signs of DVT. NEUROLOGICAL: GCS 15. Nonfocal. LABORATORY DATA: WBCs 15.99, hemoglobin 13.9, hematocrit 39.6, and platelets 532. PT 12.5, INR 0.89, PTT 21.6. D-dimer 2.11. Chemistry within normal limits. Lactic acid 1.5. LFTs within normal limits. Troponin I less than 0.001. B-type natriuretic peptide 11.3. Total protein 7.1, albumin 3.3. Coronavirus PCR collected today is pending. Blood cultures x2 collected today are pending. Chest x-ray done today shows suboptimal exam, suspected bilateral interstitial pneumonitis. A 12-lead EKG had shown normal sinus rhythm. ASSESSMENT AND PLAN: 1. Bilateral viral community-acquired pneumonia due to coronavirus disease 2018. Continue with steroids, methylprednisolone, Rocephin, azithromycin, albuterol inhalation, vitamin C, vitamin D, and zinc sulfate. 2. Acute asthma exacerbation. Home Combivent Respimat and Proventil HFA resumed. 3. Obesity with BMI of 34.75. Dietary restrictions. Billing code 25572. Time spent 60 minutes. Dictated by Reinaldo Paiz NP MD RASHIDA Contreras/ETTAL /[id number]
[2019-09-10] MEDS: METHYLPREDNISOLONE SOD SUCC 125 MG/2ML VIAL IV SCH ×2 (05:49→13:58)
[2019-09-10 06:00] LABS: BASOPHILS % 0.2 % (0.0-1.0); HEMATOCRIT 37.3 % (34.2-44.1); HEMOGLOBIN 12.8 g/dL (12.0-16.0); LYMPHOCYTES # (AUTO) 1.3 (1.0-3.2); LYMPHOCYTES % 10.3 % (18.0-39.1); MEAN CORPUSCULAR HEMOGLOBIN 31.6 pg (28-32); MEAN CORPUSCULAR HGB CONC 34.3 g/dL (31-35); MEAN CORPUSCULAR VOLUME 92.1 fL (81-99); MONOCYTES # (AUTO) 0.2 (0.2-0.8); MONOCYTES % 1.5 % (4.4-11.3); NEUTROPHILS # (AUTO) 11.2 (2.1-6.9); NEUTROPHILS % 86.8 % (38.7-80.0); PLATELET COUNT 473 x10e3/uL (140-360); RED BLOOD COUNT 4.05 x10e6/uL (3.6-5.1); RED CELL DISTRIBUTION WIDTH 12.5 % (11.7-14.4)
[2019-09-10 06:38] LABS: THYROID STIMULATING HORMONE 0.291 uIU/mL (0.350-4.940)
[2019-09-10 06:52] LABS: ALANINE AMINOTRANSFERASE 47 IU/L (0-55); ALBUMIN 2.9 g/dL (3.5-5.0); ALBUMIN/GLOBULIN RATIO 0.8 (0.8-2.0); ALKALINE PHOSPHATASE 62 IU/L (40-150); ANION GAP 13.1 mmol/L (8-16); BLOOD UREA NITROGEN 20 mg/dL (7-26); BUN/CREATININE RATIO 32 (6-25); CALCIUM 8.7 mg/dL (8.4-10.2); CARBON DIOXIDE 22 mmol/L (22-29); CHLORIDE 106 mmol/L (98-107); CHOL/HDL RATIO 3.7 (3.0-3.6); CHOLESTEROL 195 MD/DL (0-199); CREATININE, SERUM 0.63 mg/dL (0.57-1.11); EST GLOMERULAR FILTRATION RATE > 60 ML/MIN (60-); GLUCOSE 149 mg/dL (74-118); HDL CHOLESTEROL 53 MG/DL (40-60); LDL CHOLESTEROL 128 MG/DL (60-130); PHOSPHORUS 3.3 MG/DL (2.3-4.7); POTASSIUM 4.1 mmol/L (3.5-5.1); SODIUM 137 mmol/L (136-145); TRIGLYCERIDES 68 MG/DL (0-149)
[2019-09-10 07:28] LABS: CREATINE KINASE 15 IU/L (29-168)
[2019-09-10] MEDS: FAMOTIDINE 20 MG/2 ML VIAL IV SCH ×2 (08:19→16:37)
[2019-09-10] MEDS: LORATADINE 10 MG TAB PO SCH (08:20)
[2019-09-10] MEDS: CHOLECALCIFEROL 400 UNIT TAB PO SCH (08:20)
[2019-09-10] MEDS: ZINC SULFATE 220 MG CAP PO SCH ×2 (08:20→16:37)
[2019-09-10] MEDS: DOCUSATE SODIUM 100 MG CAP PO SCH ×3 (08:20→16:37)
[2019-09-10] MEDS: ASCORBIC ACID 500 MG TAB PO SCH ×2 (08:20→16:37)
[2019-09-10] MEDS: IPRATROPIUM/ALBUTEROL SULFATE 4 GM INH INH SCH ×2 (08:30→21:14)
[2019-09-10] MEDS: BENZONATATE 100 MG CAP PO PRN ×2 (08:57→14:39)
[2019-09-10] MEDS ORDERED: SODIUM CHLORIDE 0.9% 250ML 250 ML ONE (09:51)
[2019-09-10] MEDS: CEFTRIAXONE SOD 1 GRAM/0.9% SOD CHL 50ML BAG IV SCH (13:58)
[2019-09-10] MEDS ORDERED: ASCORBIC ACID500 MG PO (14:16)
[2019-09-10] MEDS ORDERED: AZITHROMYCIN250 MG PO (14:16)
[2019-09-10] MEDS ORDERED: TESSALON PERLE100 MG PO (14:16)
[2019-09-10] MEDS ORDERED: COMBIVENT RESPIM4 GM INH (14:16)
[2019-09-10] MEDS ORDERED: ZINC SULFATE220 M1 PO (14:16)
[2019-09-10] MEDS ORDERED: Cholecalciferol PO (14:16)
[2019-09-10] MEDS ORDERED: ACETAMINOPHEN325 M1 PO (14:16)
[2019-09-10] MEDS: AZITHROMYCIN 500MG/SOD CHL 0.9% 250ML BAG IV SCH (14:39)
--- NOTE | 2019-09-10 15:28 | Consultation ---
DATE OF CONSULTATION: HISTORY OF PRESENT ILLNESS: This patient who is a very pleasant 49-year-old female who comes to the emergency room with shortness of breath and cough. The patient was diagnosed on 08/18/2019 with COVID-19. She says at that time she had some sore throat with some fever, got progressively worse and then got better, but then started shortness of breath. She came back here, admitted, retest is come back positive, but she says she is feeling slightly better except from the cough and shortness of breath. PAST MEDICAL HISTORY: Asthma. PAST SURGICAL HISTORY: Tonsillectomy. ALLERGIES: NKA. SOCIAL HISTORY: There is no smoking, drug abuse, or alcohol abuse. FAMILY HISTORY: Otherwise unremarkable. REVIEW OF SYSTEMS: At the present time cough and shortness of breath as mentioned above. LABORATORY DATA: When she came, white count 15.99, hemoglobin 13.9. Sodium 137, potassium 4.1, and creatinine 0.63. Liver enzyme within normal limit. PHYSICAL EXAMINATION: GENERAL: She is currently alert, oriented. VITAL SIGNS: Stable, currently afebrile. HEENT: She is not icteric. NECK: Supple. CHEST: Crackles. HEART: S1, S2. ABDOMEN: Soft. IMPRESSION: I am concerned about pneumonia with asthma exacerbation. She is currently methylprednisolone 60 mg q.8h., Rocephin 1 g daily, Claritin, zinc, vitamin C, and vitamin D. We will add azithromycin. She is already feeling better. Oxygen as needed. We will treat her for community-acquired pneumonia as well as asthma exacerbation. MD STORMY Cameron/ANUEL /[id number]
--- NOTE | 2019-09-10 18:34 | Consultation ---
DATE OF CONSULTATION: CHIEF COMPLAINT: Dyspnea and COVID-19 infection. HISTORY OF PRESENT ILLNESS: The patient is a 49-year-old woman. She complains of shortness of breath as well as some wheezing and chest tightness. She apparently was positive previously for COVID-19. PAST MEDICAL HISTORY: Asthma. PAST SURGICAL HISTORY: Tonsillectomy. SOCIAL HISTORY: The patient is not an active smoker or drinker. ALLERGIES: THERE ARE NO KNOWN DRUG ALLERGIES. FAMILY HISTORY: Noncontributory. REVIEW OF SYSTEMS: There is no history of fevers. She does not complain of headache. There is some shortness of breath. There is no chest pain. She is not having abdominal pain. There is no nausea or vomiting. There is no leg edema. PHYSICAL EXAMINATION: VITAL SIGNS: The blood pressure is 114/80 and the pulse is 86. HEENT: Shows no facial swelling or erythema. The oropharynx is normal. LYMPHATIC: Shows no submandibular, cervical, or supraclavicular adenopathy. CARDIAC: Reveals regular rate and rhythm with normal S1 and S2. LUNGS: Auscultation of lungs reveals crackles at the bases. There is no wheezing. ABDOMEN: Soft and nontender. There is no rebound or guarding. EXTREMITIES: Shows no leg edema or calf tenderness. There is no cyanosis or clubbing. SKIN: Shows no rashes. LABORATORY DATA: White blood cell count is 12.9 and hemoglobin is 12.8. Platelet count is 473. BUN to creatinine ratio is normal. The other electrolytes are within normal limits. RADIOGRAPHIC DATA: Chest x-ray shows bilateral interstitial infiltrates. IMPRESSION: 1. Viral pneumonia and COVID-19 infection. 2. Intermittent asthma with acute exacerbation. PLAN: 1. Complete current antibiotics. 2. Continue rescue inhaler. 3. Anticoagulation. 4. Wean corticosteroids. Miles Olivares MD [facility] /[id number]
--- NOTE | 2019-09-10 19:15 | NUR ---
Patient received sitting up in bed. AAO x 3. Patient had no complaints of pain. Respirations even and non-labored. Fall precautions implemented. Patient instructed to call for assistance when needed. Call light within reach.
--- NOTE | 2019-09-10 19:24 | NUR ---
Urine specimen sent to lab for analysis.
[2019-09-10 19:25] LABS: CLARITY,URINE SL CLOUDY (CLEAR); COLOR,URINE STRAW (YELLOW); LEUKOCYTE ESTERASE ,URINE TRACE (NEGATIVE); NITRITE,URINE NEGATIVE (NEGATIVE); PROTEIN,URINE DIPSTICK NEGATIVE (NEGATIVE)
[2019-09-10 19:26] LABS: BILIRUBIN,URINE NEGATIVE (NEGATIVE); KETONES,URINE TRACE (NEGATIVE); URINE UROBILINOGEN 0.2 mg/dL (0.2 - 1)
[2019-09-10 19:37] LABS: BACTERIA,URINE MANY /HPF; EPITHELIAL CELLS,URINE MANY /LPF; TRANSITIONAL EPI CELLS,URINE MODERATE
[2019-09-11] VITALS: BP 118/73
[2019-09-11 04:00] VITALS: BP_SYST 118; BP_SYST 119; BP_DIAS 68; BP_DIAS 73
--- NOTE | 2019-09-11 07:00 | NUR ---
Patient resting comfortably. Shift report given to oncoming nurse.
[2019-09-11 07:52] VITALS: BP 118/83
[2019-09-11] MEDS: FAMOTIDINE 20 MG/2 ML VIAL IV SCH (08:21)
[2019-09-11] MEDS: ASCORBIC ACID 500 MG TAB PO SCH ×2 (08:24→16:32)
[2019-09-11] MEDS: DOCUSATE SODIUM 100 MG CAP PO SCH (08:24)
[2019-09-11] MEDS: BENZONATATE 100 MG CAP PO PRN ×2 (08:24→13:50)
[2019-09-11] MEDS: ZINC SULFATE 220 MG CAP PO SCH ×2 (08:24→16:32)
[2019-09-11] MEDS: CHOLECALCIFEROL 400 UNIT TAB PO SCH (08:24)
[2019-09-11] MEDS: LORATADINE 10 MG TAB PO SCH (08:24)
[2019-09-11] MEDS: IPRATROPIUM/ALBUTEROL SULFATE 4 GM INH INH SCH (08:25)
[2019-09-11 08:28] VITALS: BP 118/83
[2019-09-11] MEDS ORDERED: METHYLPREDNISOLONE SOD SUCC 40 MG/ML VIAL 1ML IV SCH (09:00)
[2019-09-11] MEDS: CEFTRIAXONE SOD 1 GRAM/0.9% SOD CHL 50ML BAG IV SCH (13:50)
[2019-09-11] MEDS: AZITHROMYCIN 500MG/SOD CHL 0.9% 250ML BAG IV SCH (15:03)
[2019-09-11] MEDS ORDERED: AZITHROMYCIN250 MG PO (15:26)
[2019-09-11 15:58] VITALS: BP 108/57
[2019-09-11 16:05] VITALS: BP 124/70
[2019-09-11] MEDS ORDERED: DEXAMETHASONE4 MG PO (17:19)
--- NOTE | 2019-09-11 17:40 | NUR ---
Pt discharged home at this time. Pt verbalized understanding of all discharge instructions and follow up appointments. Denies any pain at this time. Breaths even and unlabored on room air. Home O2 evaluation was done and was found that she did not meet criteria for home oxygen. Pt was discharged with prescriptions and verbalized understanding of all new medications.
--- NOTE | 2019-09-11 19:25 | Discharge Summary ---
PRIMARY CARE PHYSICIAN: Zach Cohn MD CONSULTING PHYSICIANS: 1. Dr. Abilio Paige with Infectious Disease. 2. Dr. Miles Olivares with Pulmonology Critical Care Medicine. CHIEF COMPLAINT: Cough. HISTORY OF PRESENT ILLNESS: The patient is a 49-year-old female, who admitted to the emergency department with 3-day complaints of shortness of breath, wheezing, chest tightness, that all began with having an itchy throat on 08/18/2019. She tested positive for COVID in the week of 08/18/2019. She reports that on Sunday, her COVID test was negative. Please see history and physical for past medical history, surgical history, family history, social history. She has no known allergies. ADMITTING DIAGNOSES: 1. Bilateral viral community-acquired pneumonia due to COVID-19. 2. Acute asthma exacerbation. 3. Obesity with BMI of 34.75. DISCHARGE DIAGNOSES: 1. Bilateral viral community-acquired pneumonia due to COVID-19. 2. Acute asthma exacerbation. 3. Obesity with BMI of 34.75. Please see H and P for initial laboratory and imaging studies. Today, on the day of discharge, temperature 97.6, heart rate 70, blood pressure 118/83, respirations 18, and oxygen saturation 97% on room air. She was on azithromycin, Rocephin, methylprednisolone during her stay here as well as vitamin D, vitamin C, zinc sulfate, albuterol inhalation, as well as Combivent Respimat. We will send her home on prescriptions of Z-Bradford for 3 days, Tylenol p.r.n., vitamin C, Tessalon Perles, vitamin D, Combivent, Respimat, zinc sulfate. The patient followup in [address] Paige, Infectious Disease as well as her PCP. Per Dr. Paige no longer infectious. Yesterday, WBCs 12.9, platelets 473, BUN 20, creatinine 0.63, neutrophils 86.8%. Discharge in regular diet. Activity level as tolerated. Dictated by Reinaldo Paiz NP Quintin Freeman MD [facility] /[id number]
--- NOTE | 2019-09-12 17:35 | Progress Note ---
DATE: SUBJECTIVE: Ms. Anderson is doing well today. There are no new complaints. She is not on oxygen. PHYSICAL EXAMINATION: GENERAL: Currently alert and oriented. VITAL SIGNS: Stable, currently afebrile. HEENT: She is not icteric. NECK: Supple. CHEST: Crackles bilaterally. HEART: S1, S2. ABDOMEN: Soft. Bowel sounds present. superimposed bacterial pneumonia seems to be getting better. She is currently on Rocephin and azithromycin. The patient is not on oxygen. The patient could be discharged home with Ceftin 500 mg p.o. b.i.d. for five more days, albuterol inhalers 2 puffs q.8 hours p.r.n. and Z-Bradford and cough syrup, Tylenol as needed. The patient is not infectious 10 days post symptoms. MD STORMY Cameron/ANUEL /[id number]
== END 2019-09-11 17:40 | disposition home or self-care (01) | DRG 177 ==
LOC: FSED 14:30 → ERHOLD 16:07 → IMCU 19:24
PROVIDERS: ADMIT Internal Medicine; ATTEND Internal Medicine
DX: U07.1 COVID-19 (principal); J12.89 Other viral pneumonia; J15.9 Unspecified bacterial pneumonia; J45.21 Mild intermittent asthma with (acute) exacerbation; Z83.3 Family history of diabetes mellitus; Z82.49 Family history of ischemic heart disease and other diseases of the circulatory system; E66.9 Obesity, unspecified; Z68.34 Body mass index [BMI] 34.0-34.9, adult; Z98.890 Other specified postprocedural states
CPT/HCPCS: 36415; 71045; 80053; 80061; 81001; 81003; 82550; 82553; 82948; 83036; 83605; 83735; 83880; 84100; 84443; 84484; 85025; 85379; 85610; 85730; 87040; 93005; 99284; J0456; J0696; J2920; J2930; J7050; U0002

== ENCOUNTER 2019-09-19 04:49 | Emergency (ER) | payer OTHER ==
[~2019-09-19] VITALS: Ht 152.4 cm; Wt 80.7 kg
[~2019-09-19 04:49] MED LIST changes: +ACETAMINOPHEN325 M1 PO; +ASCORBIC ACID500 MG PO; +AZITHROMYCIN250 MG PO; +CETIRIZINE HCL5 MG PO; +COMBIVENT RESPIM4 GM IH; +COMBIVENT RESPIM4 GM INH; +Cholecalciferol PO; +DEXAMETHASONE4 MG PO; +PROVENTIL HFA6.7 GM INH; +TESSALON PERLE100 MG PO; +VITAMIN C500 M1 PO; +ZINC SULFATE220 M1 PO; +ZINC SULFATE220 MG PO
[2019-09-19] MEDS ORDERED: DEXAMETHASONE SOD PHOS 10 MG/1 ML VIAL IM ONE (05:15)
[2019-09-19] MEDS ORDERED: KETOROLAC TROMETHAMINE 30 MG/ML VIAL IM STA (05:15)
--- NOTE | 2019-09-19 05:22 | Emergency Department Note ---
History of Present Illnes History of Present Illness Chief Complaint: Extremity Trauma/Pain History of Present Illness This is a 49 year old female . 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: TYLENOL 1GM AT 0115 Onset (how long ago): hour(s) (4) Location: kat knee Quality: pain Radiation: Denies non-radiation, Denies back, Denies neck, Denies extremity, Denies abdomen, Denies periumbilical, Denies flank, Denies proximal, Denies distal, Denies other Severity: mild Onset quality: gradual Duration (how long): hour(s) (3) Timing of current episode: intermittent Progression: waxing and waning Chronicity: new Context: Denies recent illness, Denies recent surgery, Denies recent immobilization, Denies recent travel, Denies trauma/injury, Denies new medications, Denies hx of DVT/PE, Denies non-compliance w/ medications, Denies other Relieving factors: none Exacerbating factors: none Associated symptoms: Reports denies other symptoms Treatments prior to arrival: none Past Medical/Family History Physician Review I have reviewed the patient's past medical and family history. Any updates have been documented here. Past Medical History Recent Fever: No Clinical Suspicion of Infectio: No New/Unexplained Change in Ment: No Past Medical History: Asthma Past Surgical History: None Social History Smoking Cessation: Never Smoker Alcohol Use: None Any Illegal Drug Use: No Physically hurt or threatened: No Other Any Pre-Existing Lines (PICC,: No Review of Systems Review of Systems Constitutional: Reports no symptoms EENTM: Reports no symptoms Cardiovascular: Reports no symptoms Respiratory: Reports no symptoms Gastrointestinal: Reports no symptoms Genitourinary: Reports no symptoms Musculoskeletal: Reports as per HPI Integumentary: Reports no symptoms Neurological: Reports no symptoms Psychological: Reports no symptoms Endocrine: Reports no symptoms Hematological/Lymphatic: Reports no symptoms Physical Exam Related Data Allergies: Coded Allergies: No Known Allergies (Unverified , 08/24/19) Triage Vital Signs Vital Signs Date Time Temp Pulse Resp B/P (MAP) Pulse Ox O2 Delivery O2 Flow Rate FiO2 09/19/19 04:55 98.3 74 18 124/69 100 Room Air Vital signs reviewed: Yes Physical Exam CONSTITUTIONAL Constitutional: Present well-developed, Present well-nourished HENT HENT: Present normocephalic, Present atraumatic, Present oropharynx clear/moist, Present nose normal HENT L/R: Present left ext ear normal, Present right ext ear normal EYES Eyes: Reports PERRL, Reports conjunctivae normal NECK Neck: Present ROM normal PULMONARY Pulmonary: Present effort normal, Present breath sounds normal CARDIOVASCULAR Cardiovascular: Present regular rhythm, Present heart sounds normal, Present capillary refill normal, Present normal rate GASTROINTESTINAL Abdominal: Present soft, Present nontender, Present bowel sounds normal GENITOURINARY Genitourinary: Present exam deferred SKIN Skin: Present warm, Present dry MUSCULOSKELETAL Musculoskeletal: Present ROM normal NEUROLOGICAL Neurological: Present alert, Present oriented x 3, Present no gross motor or sensory deficits PSYCHOLOGICAL Psychological: Present mood/affect normal, Present judgement normal Assessment & Plan Medical Decision Making MDM arthritis djd Reassessment Reassessment better Assessment & Plan Final Impression: (1) Knee pain Depart Disposition: HOME, SELF-CARE Last Vital Signs Date Time Temp Pulse Resp B/P (MAP) Pulse Ox O2 Delivery O2 Flow Rate FiO2 09/19/19 04:55 98.3 74 18 124/69 100 Room Air Home Meds Active Scripts Dexamethasone (DEXAMETHASONE) 4 Mg Tablet, 6 MG PO BID for 3 Days, #3 TAB 0 Refills Prov:SHERMAN TRAYLOR Tia INFANTE 09/11/19 Azithromycin (Z-CORINNE) 250 Mg Tablet, 250 MG PO TRIPACK DIRECTED, #1 PKT 0 Refills Prov:SHERMAN TRAYLOR Tia INFANTE 09/10/19 Acetaminophen (ACETAMINOPHEN) 325 Mg Tablet, 650 MG PO Q6H PRN for Mild Pain (1- 3) or Fever>100.8 for 30 Days, #60 TAB 0 Refills Prov:LAYTONSHERMAN Tia INFANTE 09/10/19 Ascorbic Acid (ASCORBIC ACID) 500 Mg Tablet, 1000 MG PO BID for 30 Days, #120 TAB 0 Refills Prov:SHERMAN TRAYLOR Tia INFANTE 09/10/19 Benzonatate (TESSALON PERLE) 100 Mg Capsule, 100 MG PO TID PRN for COUGH for 30 Days, #90 CAP 0 Refills Prov:LAYTONSHERMAN Tia INFANTE 09/10/19 [Cholecalciferol] 400 UNIT TAB No Conflict Check, 400 UNIT PO DAILY for 30 Days, #30 TAB 0 Refills Prov:SHERMAN TRAYLOR NP 09/10/19 Ipratropium/Albuterol Sulfate (COMBIVENT RESPIMAT INHAL SPRAY) 4 Gm Aer.w.adap, 1 GM INH RBID for 30 Days, #2 INH 0 Refills Prov:SHERMAN TRAYLOR Tia [employer] 09/10/19 Zinc Sulfate (ZINC SULFATE) 220 Mg Capsule, 220 MG PO BID for 30 Days, #60 CAP 0 Refills Prov:SHERMAN TRAYLOR Tia [employer] 09/10/19 Reported Medications Cetirizine Hcl (CETIRIZINE HCL) 5 Mg Tablet, 10 MG PO DAILY 09/09/19 Albuterol Sulfate (PROVENTIL HFA) 6.7 Gm Hfa.aer.ad, 1 INH INH TID PRN for SHORTNESS OF BREATH, INH 09/09/19 MEAGHAN MCKENZIE MD Sep 19, 2019 05:22
[2019-09-19] MEDS ORDERED: METHYLPREDNISOLONE SOD SUCC 125 MG/2ML VIAL IM ONE (05:30)
[2019-09-19] MEDS ORDERED: KETOROLAC TROMETHAMINE 30 MG/ML VIAL ONE (05:32)
[2019-09-19] MEDS ORDERED: METHYLPREDNISOLONE SOD SUCC 125 MG/2ML VIAL ONE (05:32)
--- NOTE | 2019-09-19 05:33 | NUR ---
PT TOLERATED INJECTIONS WELL.
[2019-09-19 05:55] VITALS: BP 121/68
--- OUTSIDE RECORDS SUMMARY | 2019-09-19 07:13 | XMS REPORT | Continuity of Care Document ---
Author Author Edouard Dupree [employer] JOHNNYAaron Whittaker [facility] [employer] Address Unknown Phone Unavailable Care Team Providers Care Java Sdet Name Role Phone [facility] [employer] Information Junar Unavailable Un available Problems Problem Status Onset Date Classification Date Reported Comments Source SOB Active 0 08/24/2016 [facility] FINGER LACERATION Active 12/07/2011 [facility] Scoliosis, unspecified 08/28/2016 [facility] Shortness of breath 08/28/2016 [facility] Medications Medication Details Route Status Patient Instructions Ordering Provider Order Date Source tetanus-diphtheria toxoids adult intramu scular suspension 0.5 ml, Route: IM, Dosing Weight 72.727, kg, ONCE, STAT, Start date: 12/07/11 17:18:00, Stop date: 12/07/11 17:18:00 IM No Longer Active [place] 12/07/2011 [facility] Tdap 0.5 mL, Route: IM, Dosing Weight 72.727, kg, ONCE, Start date: 12/07/11 17:02:00, Stop date: 12/07/11 17:02:00 IM No Longer Active [place] 12/07/2011 [facility] Allergies, Adverse Reactions, Alerts Substance Category Reaction Severity Reaction type Status Date Reported Comments Source No Known Medication Allergies Assertion Drug aller gy CONNIE [place] Immunizations Immunization Date Given Site Status Last Updated Comments Source tetanus-diphtheria toxoids 02/2011 completed F minnien [facility] tetanus-diphtheria toxoids 02/2011 Left Deltoid completed [...] seen. IMPRESSION: No acute abnormality. 01/31/2019 [facility] [place] Chest 2 views DX Study: Chest 2 views DX 08/25/2016 10:30 AM CDT Clinical Indication: shortness of breath - shortness of breath; Comparison: None. FINDINGS: Rotoscoliosis. The cardiomediastinal silhouette and pulmonary vasculature are within normal limits for projection and degree of inspiration. No lobar consolidation, effusion, or pneumothorax. No pleural abnormalities are seen. No acute bony abnormalities. IMPRESSION: No acute intrathoracic abnormalities. SL: [id number] 08/25/2016 [facility] Consultation Notes No Data Provided for This Section Discharge Summaries No Data Provided for This Section History and Physicals No Data Provided for This Section Vital Signs Vital Sign Value Date Comments Source Weight 72.727 12/07/2011 [facility] Height 152.40 cm 12/07/2011 [facility] Encounters Location Location Details Encounter Type Encounter Number Reason For Visit Attending Provider ADM Date DC Date Status Source [facility] Emergency [id number] COCO KHAN 12/07/2011 12/07/2011 Discharged [facility] Outpatient [id number] Pavan Johnson 08/25/2016 08/26/2016 LOCATED [facility]IN [facility] - [place] [facility] [id number] Zach Cohn 01/31/2019 02/01/2019 [facility] [place] Procedures No Data Provided for This Section Assessment and Plan No Data Provided for This Section Plan of Care No Data Provided for This Section Social History Social History Date Source No data available for this section 02/01/2019 [facility] [place] No data available for this section 08/26/2016 [facility] Family History No Data Provided for This Section Advance Directives No Data Provided for This Section Functional Status No Data Provided for This Section
--- OUTSIDE RECORDS SUMMARY | 2019-09-19 07:14 | XMS REPORT | Continuity of Care Document ---
Author Author [facility] t Organization [facility] Address [address] [place] [address] [address]. [address] [place] [address] Phone Unavailable Care Team Providers Care Senior Net Web Developer Name Role Phone MD ZACH COHN PCP Malgorzata CAM Attphys Unavailable Jose Cohn Attphys Elham Johnson Attphys Payers Payer Name Policy Type Policy Number Effective Date Expiration Date [facility] Excha [id number] 2019 00:0 0:00 [facility] Problems Condition Name Condition Details Condition Category Status Onset Date Resolution Date Last Treatment Date Treating Clinician Comments Source SOB SOB Active 08/24/2016 [facility] Diagnosis Act bebeto 2016-08-24 00:00:00 2016-08-25 11:47:00 M amy Dupree FINGER LACERATION FING ER LACERATION Active 12/07/2011 [facility] Active 2011-12-07 16:15:00 2011-12-07 17:46:00 [facility] Urinary tract infection Problem Active [facility] Infection due to severe acute respiratory syndrome coronavir us 2 (SARS-CoV-2) Problem Active [facility] Nausea and vomiting Problem Active [facility] Exacerbation of asthma Problem Active [facility] Bilateral pneumonia Problem Active [facility] Knee pain Problem Active [facility] Scoliosis, unspecified Scol iosis, unspecified 08/28/2016 [facility] Problem 2016-08-28 04:14:51 Ash Dupree Shortness of breath Shor tness of breath 08/28/2016 [facility] Problem 2016-08-28 04:14:51 Ash Dupree Allergies, [...] 1971 00:00:00 1971 00:00:00 Female [facility] Medications Ordered Medication Name Filled Medication Name Start Date Stop Da te Current Medication? Ordering Clinician Indication Dosage Frequency Signature (SIG) Comments Components Source Dexamethasone Dexamethasone 2019-09-11 17:19:00 Yes 6 Twice A Day [facility] Acetaminophen Acetaminophen 2019-09-10 14:16:00 Yes 650 Every 6 Hours as needed for Mild Pain (1-3) Or Fever>100.8 [facility] Ascorbic Acid Ascorbic Acid 2019-09-10 14:16:00 Yes 10 00 Twice A Day [facility] Azithromycin (Z-Bradford) 250 Mg TABLET Azithromycin (Z-Bradford) 250 Mg TABLET 2019-09-10 14:16:00 Yes 250 Tripack As Directed [facility] Benzonatate (Tessalon Perle) 100 Mg CAPSULE Benzonatat e (Tessalon Perle) 100 Mg CAPSULE 2019-09-10 14:16:00 Yes 100 Thre e Times A Day as needed for Cough [facility] Cholecalciferol Cholecalciferol 2019-09-10 14:16:00 Yes 400 Daily [facility] Ipratropium/Albuterol Sulfate (Combivent Respimat Inha l Seymour) 4 Gm AER.W.ADAP Ipratropium/Albuterol Sulfate (Combivent Respimat Inhal Seymour) 4 Gm AER.W.ADAP 2019-09-10 14:16:00 Yes 1 Rt Bid [facility] Zinc Sulfate Zinc Sulfate 2019-09-10 14:16:00 Yes 220 Twice A Day [facility] Ondansetron Hcl (Zofran*) 4 Mg TABLET Ondansetron Hcl (Zofra n*) 4 Mg TABLET 2019-08-24 17:37:00 2019-09-09 00:00:00 No 4 Every 6 Hours for Nausea/Vomiting [facility] tetanus-diphtheria toxoids adult intramuscular suspension 2011-12-07 22:18:00 No Parag Amado 0.5 ml, Ro aj: IM, Dosing Weight 72.727, kg, ONCE, STAT, Start date: 12/07/11 17:18:00, Stop date: 12/07/11 17:18:00 [facility] Tdap 2011-12-07 22:02:00 No Parag Amado 0.5 mL, Route: IM, Dosing Weight 72.727, kg, ONCE, Start date: 12/07/11 17:02:00, Stop date: 12/07/11 17:02:00 [facility] Albuterol Sulfate (Proventil Hfa) 6.7 Gm HFA.AER.AD Al buterol Sulfate (Proventil Hfa) 6.7 Gm HFA.AER.AD Yes 1 T hree Times A Day as needed for Shortness Of Breath [facility] Cetirizine Hcl Cetirizine Hcl Yes 10 Daily [facility] Dexamethasone Dexamethasone 2019-09-11 00:00:00 No 6 Twice A Day [facility] Ascorbic Acid (Vitamin C) 500 Mg TABLET Ascorbic Acid (Vitam in C) 500 Mg TABLET 2019-09-10 00:00:00 No 500 Daily [facility] Ipratropium/Albuterol Sulfate (Combivent Respimat Inha l Seymour) 4 Gm AER.W.ADAP Ipratropium/Albuterol Sulfate (Combivent Respimat Inhal Seymour) 4 Gm AER.W.ADAP 2019-09-10 00:00:00 No .5 [facility] Zinc Sulfate Zinc Sulfate 2019-09-10 00:00:00 No 220 Daily [facility] Vital Signs Vital Name Observation Time Observation Value Comments Source Body Temperature 2019-09-19 05:55:00 98.3 [degF] [facility] Weight 2019-09-19 04:55:00 178 [lb_av] [facility] BMI (Body Mass Index) 2019-09-19 04:55:00 34.8 kg/m2 [facility] Body Temperature 2019-09-11 16:05:00 98.2 [degF] [facility] BMI (Body Mass Index) 2019-09-09 20:29:00 31.5 kg/m2 [facility] Weight 2019-09-09 13:45:00 178 [lb_av] [facility] Body Temperature 2019-08-24 17:42:00 101.0 [degF] [facility] Weight 2019-08-24 16:00:00 178 [lb_av] [facility] BMI (Body Mass Index) 2019-08-24 16:00:00 34.8 kg/m2 [facility] Weight 2011-12-07 21:56:00 [facility] Height 2011-12-07 21:56:00 152.40 cm [facility] Procedures This patient has no known procedures. Plan of Care Planned Activity Planned Date Details Comments Source Instructions Joint Pain [facility] Encounters Start Date/Time End Date/Time Encounter Type Admission Type [facility] Care Department Encounter ID Source 2019-09-19 05:15:00 2019-09-19 05:57:00 Departed Emergency Room [facility] [id number] [facility] 2019-09-09 16:07:00 2019-09-11 17:40:00 Discharged Inpatient 1 CHARLES CAM [facility] [id number] [facility] 2019-08-24 16:05:00 2019-08-24 17:57:00 Departed Emergency Room [facility] [id number] [facility] 2019-01-31 11:09:00 2019-01-31 23:59:00 Outpatient Zach Cohn [facility] [id number] 2016-08-25 11:09:00 2016-08-25 23:59:00 Outpatient Pavan Johnson [facility] [id number] Results Test Description Test Time Test Comments Results Result Comments Source Urine color determination 2019-09-10 19:00:00 Test Item Urine Color (test code = 5778-6) STRAW YELLOW [facility] [id number] 19:00:00* Test Item Value Reference Range Interpretation Comments Urine Clarity (test code = 99568-6) SL CLOUDY CLEAR [facility] Heightspecific gravity of Urine by Test strip 2019-09-10 19:00:00* Test Item Value Reference Range Interpretation Comments Urine Specific [place] (test code = 5811-5) 1.030 1.010-1.02 5 [facility] pH measurement by automated test [id number] 19:00:00* Test Item Value Reference Range Interpretation Comments Urine pH (test code = 01539-2) 6 5-7 [facility] leukocyte esterase detection by [id number] 19:00:00* Test Item Value Reference Range Interpretation Comments Urine Leukocyte Esterase (test code = 5799-2) TRACE NEGATIVE [facility] nitrite [id number] 19:00:00* Test Item Value Reference Range Interpretation Comments Urine Nitrite (test code = 26260-1) NEGATIVE NEGATIVE [facility] protein measurement by test strip (mass/volume)2019-09-10 19:00:00* Test Item Value Reference Range Interpretation Comments Urine Protein (test code = 5804-0) NEGATIVE NEGATIVE [facility] glucose [id number] 19:00:00* Test Item Value Reference Range Interpretation Comments Urine Glucose (UA) (test code = 2349-9) 2+ NEGATIVE [facility] ketones detection by automated test [id number] 19:00:00* Test Item Value Reference Range Interpretation Comments Urine Ketones (test code = 89691-3) TRACE NEGATIVE [facility] urobilinogen measurement by test strip (mass/volume)2019-09-10 19:00:00* Test Item Value Reference Range Interpretation Comments Urine Urobilinogen (test code = 70562-2) 0.2 0.2-1 [facility] total bilirubin measurement (mass/volume)2019-09-10 19:00:00* Test Item Value Reference Range Interpretation Comments Urine Bilirubin (test code = 1978-6) NEGATIVE NEGATIVE [facility] erythrocytes [id number] 19:00:00* Test Item Value Reference Range Interpretation Comments Urine Blood (test code = 10264-7) MODERATE NEGATIVE [facility] urine sediment leukocyte count by microscopy (number/high power field)2019-09-10 19:00:00* Test Item Value Reference Range Interpretation Comments Urine WBC (test code = 5821-4) 6-10 0-5 [facility]entonErythrocytes detection in urine sediment by light [id number] 19:00:00* Test Item Value Reference Range Interpretation Comments Urine RBC (test code = 09818-1) 11-20 0-5 [facility]acteria detection in urine sediment by light [id number] 19:00:00* Test Item Value Reference Range Interpretation Comments Urine Bacteria (test code = 13606-5) MANY NONE [facility]entonEpithelial cells detection in urine sediment by light ubywiezwco6028-80-59 19:00:00* Test Item Value Reference Range Interpretation Comments Urine Epithelial Cells (test code = 02082-6) MANY NONE [facility]entonTransitional cells detection in urine sediment by light lekshzwqnx7438-96-94 19:00:00* Test Item Value Reference Range Interpretation Comments Urine Transitional Epithelial Cells (test code = 8249-5) MODERATE NONE [facility]enton[facility] color puzegyrvoqsha3738-55-28 19:00:00* Test Item Value Reference Range Interpretation Comments Urine Color (test code = 5778-6) STRAW YELLOW [facility]enton[facility]rine [id number] 19:00:00* Test Item Value Reference Range Interpretation Comments Urine Clarity (test code = 47179-2) SL CLOUDY CLEAR [facility] Heightspecific gravity of Urine by Test strip 2019-09-10 19:00:00* Test Item Value Reference Range Interpretation Comments Urine Specific [place] (test code = 5811-5) 1.030 1.010-1.02 5 [facility] pH measurement by automated test [id number] 19:00:00* Test Item Value Reference Range Interpretation Comments Urine pH (test code = 66745-8) 6 5-7 [facility] leukocyte esterase detection by [id number] 19:00:00* Test Item Value Reference Range Interpretation Comments Urine Leukocyte Esterase (test code = 5799-2) TRACE NEGATIVE [facility] nitrite [id number] 19:00:00* Test Item Value Reference Range Interpretation Comments Urine Nitrite (test code = 16532-0) NEGATIVE NEGATIVE [facility] protein measurement by test strip (mass/volume)2019-09-10 19:00:00* Test Item Value Reference Range Interpretation Comments Urine Protein (test code = 5804-0) NEGATIVE NEGATIVE [facility] glucose [id number] 19:00:00* Test Item Value Reference Range Interpretation Comments Urine Glucose (UA) (test code = 2349-9) 2+ NEGATIVE [facility]enton[facility] ketones detection by automated test [id number] 19:00:00* Test Item Value Reference Range Interpretation Comments Urine Ketones (test code = 56731-3) TRACE NEGATIVE [facility]enton[facility]rine urobilinogen measurement by test strip (mass/volume)2019-09-10 19:00:00* Test Item Value Reference Range Interpretation Comments Urine Urobilinogen (test code = 12945-5) 0.2 0.2-1 [facility] total bilirubin measurement (mass/volume)2019-09-10 19:00:00* Test Item Value Reference Range Interpretation Comments Urine Bilirubin (test code = 1978-6) NEGATIVE NEGATIVE [facility] erythrocytes [id number] 19:00:00* Test Item Value Reference Range Interpretation Comments Urine Blood (test code = 34556-7) MODERATE NEGATIVE [facility]entonAutomated urine sediment leukocyte count by microscopy (number/high power field)2019-09-10 19:00:00* Test Item Value Reference Range Interpretation Comments Urine WBC (test code = 5821-4) 6-10 0-5 [facility]entonErythrocytes detection in urine sediment by light [id number] 19:00:00* Test Item Value Reference Range Interpretation Comments Urine RBC (test code = 86867-9) 11-20 0-5 [facility]entonBacteria detection in urine sediment by light [id number] 19:00:00* Test Item Value Reference Range Interpretation Comments Urine Bacteria (test code = 59467-8) MANY NONE [facility]entonEpithelial cells detection in urine sediment by light [id number] 19:00:00* Test Item Value Reference Range Interpretation Comments Urine Epithelial Cells (test code = 75377-5) MANY NONE [facility]entonTransitional cells detection in urine sediment by light gvkmyrchll2310-07-41 19:00:00* Test Item Value Reference Range Interpretation Comments Urine Transitional Epithelial Cells (test code = 8249-5) MODERATE NONE [facility] DentonCapillary blood glucose measurement by glucometer (mass/volume)2019-09-10 07:09:00* Test Item Value Reference Range Interpretation Comments Bedside Glucose (test code = 47444-5) 117 70-120 Meter ID: [id number] Scott and [facility] the [facility] DentonCapillary blood glucose measurement by glucometer (mass/volume)2019-09-10 07:09:00* Test Item Value Reference Range Interpretation Comments Bedside Glucose (test code = 38247-6) 117 70-120 Meter ID: [id number] Scott and [facility] DentonBlood leukocytes automated count (number/volume)2019-09-10 05:20:00* Test Item Value Reference Range Interpretation Comments White Blood Count (test code = 6690-2) 12.90 4.8-10.8 [facility]entonBlood erythrocytes automated count (number/volume)2019-09-10 05:20:00* Test Item Value Reference Range Interpretation Comments Red Blood Count (test code = 789-8) 4.05 3.6-5.1 [facility]entonBlood hemoglobin measurement (moles/volume)2019-09-10 05:20:00* Test Item Value Reference Range Interpretation Comments Hemoglobin (test code = 01215-7) 12.8 12.0-16.0 [facility]entonAutomated blood hematocrit (volume fraction)2019-09-10 05:20:00* Test Item Value Reference Range Interpretation Comments Hematocrit (test code = 4544-3) 37.3 34.2-44.1 [facility]entonAutomated erythrocyte mean corpuscular ogxyqq0029-69-08 05:20:00* Test Item Value Reference Range Interpretation Comments Mean Corpuscular Volume (test code = 787-2) 92.1 81-99 [facility]entonAutomated erythrocyte mean corpuscular hemoglobin (mass per erythrocyte)2019-09-10 05:20:00* Test Item Value Reference Range Interpretation Comments Mean Corpuscular Hemoglobin (test code = 785-6) 31.6 28-32 [facility] DentonAutomated erythrocyte mean corpuscular hemoglobin concentration measurement (mass/volume)2019-09-10 05:20:00* Test Item Value Reference Range Interpretation Comments Mean Corpuscular Hemoglobin Concent (test code = 786-4) 34.3 31-35 [facility] DentonRDW KrkNm-Oxg0162-96-05 05:20:00* Test Item Value Reference Range Interpretation Comments Red Cell Distribution Width (test code = 58068-0) 12.5 11.7 -14.4 [facility] DentonAutomated blood platelet count (count/volume)2019-09-10 05:20:00* Test Item Value Reference Range Interpretation Comments Platelet Count (test code = 777-3) 473 140-360 [facility] neutrophil count as percentage of total eusgifuxoo6204-97-03 05:20:00* Test Item Value Reference Range Interpretation Comments Neutrophils (%) (Auto) (test code = 26520-1) 86.8 38.7-80.0 [facility] DentonAutomated blood lymphocyte count as percentage ot total tragszwdkc7633-63-25 05:20:00* Test Item Value Reference Range Interpretation Comments Lymphocytes (%) (Auto) (test code = 736-9) 10.3 18.0-39.1 [facility]entonAutomated blood monocyte count as percentage of total hydvtzntea1177-67-78 05:20:00* Test Item Value Reference Range Interpretation Comments Monocytes (%) (Auto) (test code = 5905-5) 1.5 4.4-11.3 [facility] DentonAutomated blood eosinophil count as percentage of total yrbukxhqsn4438-37-69 05:20:00* Test Item Value Reference Range Interpretation Comments Eosinophils (%) (Auto) (test code = 713-8) 0.0 0.0-6.0 [facility] DentonAutomated blood basophil count as percentage of total vxtubvbypp9744-02-57 05:20:00* Test Item Value Reference Range Interpretation Comments Basophils (%) (Auto) (test code = 706-2) 0.2 0.0-1.0 [facility] DentonFluoroscopic procedure less than one hour gvrobykm2589-64-90 05:20:00* Test Item Value Reference Range Interpretation Comments IM GRANULOCYTES % (test code = IM GRANULOCYTES %) 1.2 0.0- 1.0 [facility]entonAutomated blood neutrophil count 2019-09-10 05:20:00* Test Item Value Reference Range Interpretation Comments Neutrophils # (Auto) (test code = 751-8) 11.2 2.1-6.9 [facility]entonBlood lymphocytes count (number/volume) 2019-09-10 05:20:00* Test Item Value Reference Range Interpretation Comments Lymphocytes # (Auto) (test code = 14346-6) 1.3 1.0-3.2 [facility]entonBlood monocytes automated count (number/volume)2019-09-10 05:20:00* Test Item Value Reference Range Interpretation Comments Monocytes # (Auto) (test code = 742-7) 0.2 0.2-0.8 [facility]entonAutomated blood eosinophil count 2019-09-10 05:20:00* Test Item Value Reference Range Interpretation Comments Eosinophils # (Auto) (test code = 711-2) 0.0 0.0-0.4 [facility]entonAutomated blood basophil count (count/volume)2019-09-10 05:20:00* Test Item Value Reference Range Interpretation Comments Basophils # (Auto) (test code = 704-7) 0.0 0.0-0.1 [facility] DentonFluoroscopic procedure less than one hour ftobfamq9006-01-84 05:20:00* Test Item Value Reference Range Interpretation Comments Absolute Immature Granulocyte (auto (hima t code = Absolute Immature Granulocyte (auto) 0.15 0-0.1 [facility] Heightserum or plasma sodium measurement (moles/volume)2019-09-10 05:20:00* Test Item Value Reference Range Interpretation Comments Sodium Level (test code = 2951-2) 137 136-145 [facility] Heightserum or plasma potassium measurement (moles/volume)2019-09-10 05:20:00* Test Item Value Reference Range Interpretation Comments Potassium Level (test code = 2823-3) 4.1 3.5-5.1 [facility] Heightserum or plasma chloride measurement (moles/volume)2019-09-10 05:20:00* Test Item Value Reference Range Interpretation Comments Chloride Level (test code = 2075-0) 106 98-107 [facility] Heightserum or plasma carbon dioxide, total measurement (moles/volume)2019-09-10 05:20:00* Test Item Value Reference Range Interpretation Comments Carbon Dioxide Level (test code = 2028-9) 22 22-29 [facility] Heightserum or plasma anion [id number] 05:20:00* Test Item Value Reference Range Interpretation Comments Anion Gap (test code = 38010-0) 13.1 8-16 [facility] Heightser[facility] or plasma urea nitrogen measurement (mass/volume)2019-09-10 05:20:00* Test Item Value Reference Range Interpretation Comments Blood Urea Nitrogen (test code = 3094-0) 20 7-26 [facility] Heightserum or plasma creatinine measurement (mass/volume)2019-09-10 05:20:00* Test Item Value Reference Range Interpretation Comments Creatinine (test code = 2160-0) 0.63 0.57-1.11 [facility] Heightser[facility] or plasma urea nitrogen/creatinine mass [id number] 05:20:00* Test Item Value Reference Range Interpretation Comments BUN/Creatinine Ratio (test code = 3097-3) 32 6-25 [facility]entonEstimated glomerular filtration rate (GFR) yodgmzvxauzmh8140-28-94 05:20:00* Test Item Value Reference Range Interpretation Comments Estimat Glomerular Filtration Rate (test code = 989115813) > 60 >60 Ranges were taken from the National Kidney Disease Education Program and the [facility] literature.Reference ranges:60 or greater: Crgfpg45-23 ( for 3 consecutive months): Chronic kidney disease 15 or less: Kidney failureBaylor Scott and White the [facility] Hospital – DentonGlucose naifsowkqiv5697-23-64 05:20:00* Test Item Value Reference Range Interpretation Comments Glucose Level (test code = AZD8764) 149 74-118 [facility] Heightserum or plasma calcium measurement (mass/volume)2019-09-10 05:20:00* Test Item Value Reference Range Interpretation Comments Calcium Level (test code = 58391-6) 8.7 8.4-10.2 [facility] DentonFluoroscopic procedure less than one hour mushogrq2676-20-01 05:20:00* Test Item Value Reference Range Interpretation Comments Hemoglobin A1c Percent (test code = Hemoglobin A1c Percent) 5.7 4.0-7.0 [facility] DentonPhosphorus phrhasfupej8261-15-86 05:20:00 * Test Item Value Reference Range Interpretation Comments Phosphorus Level (test code = FVM9677) 3.3 2.3-4.7 [facility] Heightserum or plasma total bilirubin measurement (mass/volume)2019-09-10 05:20:00* Test Item Value Reference Range Interpretation Comments Total Bilirubin (test code = 1975-2) 0.6 0.2-1.2 [facility] DentonFluoroscopic procedure less than one hour kryiqdkq9153-46-73 05:20:00* Test Item Value Reference Range Interpretation Comments Aspartate Amino Transf (AST/SGOT) (test code = Aspartate Amino Transf (AST/SGOT)) 16 5-34 [facility] Heightserum or plasma alanine aminotransferase measurement (enzymatic activity/volume)2019-09-10 05:20:00* Test Item Value Reference Range Interpretation Comments Alanine Aminotransferase (ALT/SGPT) (test code = 1742-6) 47 0-55 [facility] Heightserum or plasma protein measurement (mass/volume)2019-09-10 05:20:00* Test Item Value Reference Range Interpretation Comments Total Protein (test code = 2885-2) 6.7 6.5-8.1 [facility] albumin [facility] (mass/volume)2019-09-10 05:20:00* Test Item Value Reference Range Interpretation Comments Albumin (test code = 1751-7) 2.9 3.5-5.0 [facility]entonPlasma globulin measurement (mass/volume) 2019-09-10 05:20:00* Test Item Value Reference Range Interpretation Comments Globulin (test code = 07700-4) 3.8 2.3-3.5 [facility] albumin/globulin mass [id number] 05:20:00* Test Item Value Reference Range Interpretation Comments Albumin/Globulin Ratio (test code = 1759-0) 0.8 0.8-2.0 [facility] plasma alkaline phosphatase measurement (enzymatic activity/volume)2019-09-10 05:20:00* Test Item Value Reference Range Interpretation Comments Alkaline Phosphatase (test code = 6768-6) 62 40-150 [facility] triglyceride measurement (mass/volume)2019-09-10 05:20:00* Test Item Value Reference Range Interpretation Comments Triglycerides Level (test code = 2571-8) 68 0-149 [facility] plasma cholesterol measurement (mass/volume)2019-09-10 05:20:00* Test Item Value Reference Range Interpretation Comments Cholesterol Level (test code = 2093-3) 195 0-199 Less than 200 mg/dL Low Rccy344 - 239 mg/dL Borderline Zqrj280 m g/dl and greater High Risk [facility] cholesterol in LDL measurement (mass/volume) 2019-09-10 05:20:00* Test Item Value Reference Range Interpretation Comments LDL Cholesterol (test code = 2089-1) 128 60-130 [facility] or plasma cholesterol in HDL measurement (mass/volume)2019-09-10 05:20:00* Test Item Value Reference Range Interpretation Comments HDL Cholesterol (test code = 2085-9) 53 40-60 [facility] plasma total cholesterol/cholesterol in HDL mass [id number] 05:20:00* Test Item Value Reference Range Interpretation Comments Cholesterol/HDL Ratio (test code = 9830-1) 3.7 3.0-3.6 [facility] plasma creatine kinase measurement (enzymatic activity/volume)2019-09-10 05:20:00* Test Item Value Reference Range Interpretation Comments Creatine Kinase (test code = 2157-6) 15 29-168 [facility] or plasma creatine kinase MB measurement (mass/volume)2019-09-10 05:20:00* Test Item Value Reference Range Interpretation Comments Creatine Kinase MB (test code = 74969-5) 0.30 0-5.0 [facility] DentonTroponin I measurement by highly sensitive enzyme [id number] 05:20:00* Test Item Value Reference Range Interpretation Comments Troponin I (test code = 16476-1) < 0.001 0-0.300 [facility] or plasma thyrotropin measurement by detection limit <= 0.005 miu/l (units/volume)2019-09-10 05:20:00* Test Item Value Reference Range Interpretation Comments Thyroid Stimulating Hormone (TSH) (test code = 24786-4) 0.291 0.350-4.940 [facility]entonBlood leukocytes automated count (number/volume)2019-09-10 05:20:00* Test Item Value Reference Range Interpretation Comments White Blood Count (test code = 6690-2) 12.90 4.8-10.8 [facility]entonBlood erythrocytes automated count (number/volume)2019-09-10 05:20:00* Test Item Value Reference Range Interpretation Comments Red Blood Count (test code = 789-8) 4.05 3.6-5.1 [facility] hemoglobin measurement (moles/volume)2019-09-10 05:20:00* Test Item Value Reference Range Interpretation Comments Hemoglobin (test code = 56961-9) 12.8 12.0-16.0 [facility] DentonAutomated blood hematocrit (volume fraction)2019-09-10 05:20:00* Test Item Value Reference Range Interpretation Comments Hematocrit (test code = 4544-3) 37.3 34.2-44.1 [facility] DentonAutomated erythrocyte mean corpuscular dvbhnc3725-62-71 05:20:00* Test Item Value Reference Range Interpretation Comments Mean Corpuscular Volume (test code = 787-2) 92.1 81-99 [facility] DentonAutomated erythrocyte mean corpuscular hemoglobin (mass per erythrocyte)2019-09-10 05:20:00* Test Item Value Reference Range Interpretation Comments Mean Corpuscular Hemoglobin (test code = 785-6) 31.6 28-32 [facility] DentonAutomat erythrocyte mean corpuscular hemoglobin concentration measurement (mass/volume)2019-09-10 05:20:00* Test Item Value Reference Range Interpretation Comments Mean Corpuscular Hemoglobin Concent (test code = 786-4) 34.3 31-35 [facility] DentonRD SzuKo-Gnj5600-39-05 05:20:00* Test Item Value Reference Range Interpretation Comments Red Cell Distribution Width (test code = 30306-5) 12.5 11.7 -14.4 [facility] DentonAutformerly [facility] hospitaled [facility] platelet count (count/volume)2019-09-10 05:20:00* Test Item Value Reference Range Interpretation Comments Platelet Count (test code = 777-3) 473 140-360 [facility] segmented neutrophil count as percentage of total tkhdyzruss0444-30-16 05:20:00* Test Item Value Reference Range Interpretation Comments Neutrophils (%) (Auto) (test code = 03820-0) 86.8 38.7-80.0 [facility] DentonAutomated blood lymphocyte count as percentage ot total xpnwxbkrnw9407-48-45 05:20:00* Test Item Value Reference Range Interpretation Comments Lymphocytes (%) (Auto) (test code = 736-9) 10.3 18.0-39.1 [facility] DentonAutomated blood monocyte count as percentage of total hurujocmvz3989-58-15 05:20:00* Test Item Value Reference Range Interpretation Comments Monocytes (%) (Auto) (test code = 5905-5) 1.5 4.4-11.3 [facility] DentonAutformerly [facility] hospitaled blood eosinophil count as percentage of total xhbxifqdlz6109-45-45 05:20:00* Test Item Value Reference Range Interpretation Comments Eosinophils (%) (Auto) (test code = 713-8) 0.0 0.0-6.0 [facility] DentonAutomated blood basophil count as percentage of total canibebusv9164-99-88 05:20:00* Test Item Value Reference Range Interpretation Comments Basophils (%) (Auto) (test code = 706-2) 0.2 0.0-1.0 [facility] DentonFluoroscopic procedure less than one hour drxkejjd4762-10-11 05:20:00* Test Item Value Reference Range Interpretation Comments IM GRANULOCYTES % (test code = IM GRANULOCYTES %) 1.2 0.0- 1.0 [facility] DentonAutomated blood neutrophil count 2019-09-10 05:20:00* Test Item Value Reference Range Interpretation Comments Neutrophils # (Auto) (test code = 751-8) 11.2 2.1-6.9 [facility] DentonBlood lymphocytes count (number/volume) 2019-09-10 05:20:00* Test Item Value Reference Range Interpretation Comments Lymphocytes # (Auto) (test code = 96893-2) 1.3 1.0-3.2 [facility] DentonBlood monocytes automated count (number/volume)2019-09-10 05:20:00* Test Item Value Reference Range Interpretation Comments Monocytes # (Auto) (test code = 742-7) 0.2 0.2-0.8 [facility] DentonAutomated blood eosinophil count 2019-09-10 05:20:00* Test Item Value Reference Range Interpretation Comments Eosinophils # (Auto) (test code = 711-2) 0.0 0.0-0.4 [facility] DentonAutomated blood basophil count (count/volume)2019-09-10 05:20:00* Test Item Value Reference Range Interpretation Comments Basophils # (Auto) (test code = 704-7) 0.0 0.0-0.1 [facility] DentonFluoroscopic procedure less than one hour itcqqdye7471-62-11 05:20:00* Test Item Value Reference Range Interpretation Comments Absolute Immature Granulocyte (auto (hima t code = Absolute Immature Granulocyte (auto) 0.15 0-0.1 [facility] sodium measurement (moles/volume)2019-09-10 05:20:00* Test Item Value Reference Range Interpretation Comments Sodium Level (test code = 2951-2) 137 136-145 [facility]ser[facility] or plasma potassium measurement (moles/volume)2019-09-10 05:20:00* Test Item Value Reference Range Interpretation Comments Potassium Level (test code = 2823-3) 4.1 3.5-5.1 [facility] or plasma chloride measurement (moles/volume)2019-09-10 05:20:00* Test Item Value Reference Range Interpretation Comments Chloride Level (test code = 2075-0) 106 98-107 [facility] Heightser[facility] or plasma carbon dioxide, total measurement (moles/volume)2019-09-10 05:20:00* Test Item Value Reference Range Interpretation Comments Carbon Dioxide Level (test code = 2028-9) 22 22-29 [facility] or plasma anion [id number] 05:20:00* Test Item Value Reference Range Interpretation Comments Anion Gap (test code = 86122-9) 13.1 8-16 [facility] plasma urea nitrogen measurement (mass/volume)2019-09-10 05:20:00* Test Item Value Reference Range Interpretation Comments Blood Urea Nitrogen (test code = 3094-0) 20 7-26 [facility] plasma creatinine measurement (mass/volume)2019-09-10 05:20:00* Test Item Value Reference Range Interpretation Comments Creatinine (test code = 2160-0) 0.63 0.57-1.11 [facility] or plasma urea nitrogen/creatinine mass sxzsh2088-72-06 05:20:00* Test Item Value Reference Range Interpretation Comments BUN/Creatinine Ratio (test code = 3097-3) 32 6-25 [facility] DentonEstimated glomerular filtration rate (GFR) xkddnzvgwbgjw7100-61-82 05:20:00* Test Item Value Reference Range Interpretation Comments Estimat Glomerular Filtration Rate (test code = 787618159) > 60 >60 Ranges were taken from the National Kidney Disease Education Program and the [facility] literature.Reference ranges:60 or greater: Zfxkxe05-97 ( for 3 consecutive months): Chronic kidney disease 15 or less: Kidney failureBaylor Scott and White the Heart Hospital – DentonGlucose egonnqiahmj7432-00-38 05:20:00* Test Item Value Reference Range Interpretation Comments Glucose Level (test code = GLS1590) 149 74-118 [facility] plasma calcium measurement (mass/volume)2019-09-10 05:20:00* Test Item Value Reference Range Interpretation Comments Calcium Level (test code = 99118-4) 8.7 8.4-10.2 [facility] DentonFluoroscopic procedure less than one hour [id number] 05:20:00* Test Item Value Reference Range Interpretation Comments Hemoglobin A1c Percent (test code = Hemoglobin A1c Percent) 5.7 4.0-7.0 [facility] DentonPhosphorus gdldozelpgu0823-36-66 05:20:00 * Test Item Value Reference Range Interpretation Comments Phosphorus Level (test code = RXJ6765) 3.3 2.3-4.7 [facility] plasma total bilirubin measurement (mass/volume)2019-09-10 05:20:00* Test Item Value Reference Range Interpretation Comments Total Bilirubin (test code = 1975-2) 0.6 0.2-1.2 [facility] DentonFluoroscopic procedure less than one hour qeutnkkf9888-43-98 05:20:00* Test Item Value Reference Range Interpretation Comments Aspartate Amino Transf (AST/SGOT) (test code = Aspartate Amino Transf (AST/SGOT)) 16 5-34 [facility] or plasma alanine aminotransferase measurement (enzymatic activity/volume)2019-09-10 05:20:00* Test Item Value Reference Range Interpretation Comments Alanine Aminotransferase (ALT/SGPT) (test code = 1742-6) 47 0-55 [facility] or plasma protein measurement (mass/volume)2019-09-10 05:20:00* Test Item Value Reference Range Interpretation Comments Total Protein (test code = 2885-2) 6.7 6.5-8.1 [facility]ser[facility] or plasma albumin measurement (mass/volume)2019-09-10 05:20:00* Test Item Value Reference Range Interpretation Comments Albumin (test code = 1751-7) 2.9 3.5-5.0 [facility] DentonPlasma globulin measurement (mass/volume) 2019-09-10 05:20:00* Test Item Value Reference Range Interpretation Comments Globulin (test code = 20500-0) 3.8 2.3-3.5 [facility] albumin/globulin mass nhtcx3724-61-58 05:20:00* Test Item Value Reference Range Interpretation Comments Albumin/Globulin Ratio (test code = 1759-0) 0.8 0.8-2.0 [facility] or plasma alkaline phosphatase measurement (enzymatic activity/volume)2019-09-10 05:20:00* Test Item Value Reference Range Interpretation Comments Alkaline Phosphatase (test code = 6768-6) 62 40-150 [facility]ser[facility] or plasma triglyceride measurement (mass/volume)2019-09-10 05:20:00* Test Item Value Reference Range Interpretation Comments Triglycerides Level (test code = 2571-8) 68 0-[address] [facility] plasma cholesterol measurement (mass/volume)2019-09-10 05:20:00* Test Item Value Reference Range Interpretation Comments Cholesterol Level (test code = 2093-3) 195 0-199 Less than 200 mg/dL Low Ngfk881 - 239 mg/dL Borderline Tdlg869 m g/dl and greater High Risk [facility] cholesterol in LDL measurement (mass/volume) 2019-09-10 05:20:00* Test Item Value Reference Range Interpretation Comments LDL Cholesterol (test code = 2089-1) 128 60-130 [facility]ser[facility] or plasma cholesterol in HDL measurement (mass/volume)2019-09-10 05:20:00* Test Item Value Reference Range Interpretation Comments HDL Cholesterol (test code = 2085-9) 53 40-60 [facility]ser[facility] or plasma total cholesterol/cholesterol in HDL mass [id number] 05:20:00* Test Item Value Reference Range Interpretation Comments Cholesterol/HDL Ratio (test code = 9830-1) 3.7 3.0-3.6 [facility] or plasma creatine kinase measurement (enzymatic activity/volume)2019-09-10 05:20:00* Test Item Value Reference Range Interpretation Comments Creatine Kinase (test code = 2157-6) 15 29-168 [facility]ser[facility] or plasma creatine kinase MB measurement (mass/volume)2019-09-10 05:20:00* Test Item Value Reference Range Interpretation Comments Creatine Kinase MB (test code = 90099-4) 0.30 0-5.0 [facility] DentonTroponin I measurement by highly sensitive enzyme akfepzuxemj6305-10-19 05:20:00* Test Item Value Reference Range Interpretation Comments Troponin I (test code = 47452-2) < 0.001 0-0.300 [facility] or plasma thyrotropin measurement by detection limit <= 0.005 miu/l (units/volume)2019-09-10 05:20:00* Test Item Value Reference Range Interpretation Comments Thyroid Stimulating Hormone (TSH) (test code = 95986-0) 0.291 0.350-4.940 [facility] DentonCXR 1 VE - [id number] 15:10:00 [facility] [address] [address] Patient Name: JOHNNY CARTY MR #: [id number] : 1970 Age/Sex: 49/F Req #: [id number] Adm Physician: Ordered by: CHARLES CAM Report #: [id number] Location: [facility] Room/Bed: Procedure: [id number] [facility] Date: 09/09/19 Exam Time: 1443 REPORT STATUS: Signed X-ray chest front al view History: Covid positive. Cough. Weakness. Comparison: None Findings: Significant rotation on this exam. Central airways: Unremarka ble Cardiac silhouette: Unremarkable Mediastinal silhouettes: Unremark able Pleura: No pleural effusion, pneumothorax or thickening Diaphr agms: Unremarkable Lungs: Bilateral diffuse axial interstitial infiltrates. This is consistent with the possibility of interstitial pneumonitis such as a viral pneumonia. Skeletal structures: Unremarkable Extrathoracic soft tissues: Unremarkable Impression: Suboptimal exam. Suspected bilateral int erstitial pneumonitis. Signed by: Taurus Cronin MD on 09/09/2019 3:13 PM Dictated By: TAURUS CRONIN MD 151 Transcribed By: CARLEE on 09/09/19 1513 COPY TO: CHARLES COLLINS Blood tojpmpy3212-44-94 14:45:00* Test Item Value Reference Range Interpretation Comments Blood Culture (test code = 17498211) NO GROWTH AFTER 48 HOURS [facility] Center[facility] gztqycf6392-56-16 14:45:00* Test Item Value Reference Range Interpretation Comments Blood Culture (test code = 31254044) NO GROWTH AFTER 5 DAYS, FINAL REPORT [facility] DentonFluoroscopic procedure less than one hour [id number] 14:38:00* Test Item Value Reference Range Interpretation Comments Coronavirus (PCR) (test code = Coronavirus (PCR)) DETECTED NOTD ETECTED SARS-COV2/RT-PCRResults are for the detection of SARS-COV-2 RNA. The SARS-COV-2 RNA is generally detectable in nasopharyngeal swab specimens during the acute ph ase of infection. Positive results are indicitive of active infection with SARS- COV-2; clinical correlation with patient history and other diagnostic informatio n is necessary to determine patient infection status. Positive results do not ru le out bacterial infection or co-infection with other viruses. The agent detecte d may not be the definite cause of the disease.The limit of detection for this a ssay is 250 copies/mLThe SARS-CoV-2 test is a rapid, real-time RT-PCR test inten ded for the qualitative detection of nucleic acid from SARS-CoV-2 in nasopharyng eal swab specimen collected from individuals suspected of COVID-19 by their peoples hospital provider. This test has not been Food and Drug Administration (FDA) clear ed or approved and has been authorized by FDA under an Emergency Use Authorizati on (EUA). This EUA will be effective until the declaration that circumstances ex ist justifying the authorization of the emergency use of in vitro diagnostic hima t for detection and or diagnosis of COVID-19 is terminated under section 564(b) of the Act, or the the EUA is revoked under 564(g) of the ACT.Testing performed by [facility] [place], [place] [address]PN[facility] CenterFluoroscopic procedure less than one hour [id number] 14:38:00* Test Item Value Reference Range Interpretation Comments Coronavirus (PCR) (test code = Coronavirus (PCR)) DETECTED NOTD ETECTED SARS-COV2/RT-PCRResults are for the detection of SARS-COV-2 RNA. The SARS-COV-2 RNA is generally detectable in nasopharyngeal swab specimens during the acute ph ase of infection. Positive results are indicitive of active infection with SARS- COV-2; clinical correlation with patient history and other diagnostic informatio n is necessary to determine patient infection status. Positive results do not ru le out bacterial infection or co-infection with other viruses. The agent detecte d may not be the definite cause of the disease.The limit of detection for this a ssay is 250 copies/mLThe SARS-CoV-2 test is a rapid, real-time RT-PCR test inten ded for the qualitative detection of nucleic acid from SARS-CoV-2 in nasopharyng eal swab specimen collected from individuals suspected of COVID-19 by their [facility] hospital provider. This test has not been Food and Drug Administration (FDA) clear ed or approved and has been authorized by FDA under an Emergency Use Authorizati on (EUA). This EUA will be effective until the declaration that circumstances ex ist justifying the authorization of the emergency use of in vitro diagnostic hima t for detection and or diagnosis of COVID-19 is terminated under section 564(b) of the Act, or the the EUA is revoked under 564(g) of the ACT.Testing performed by [facility] [place], [place] [address]HMLB[facility] DentonProthrombin time (PT) in platelet poor plasma by coagulation [id number] 14:06:00* Test Item Value Reference Range Interpretation Comments Prothrombin Time (test code = 5902-2) 12.5 11.9-14.5 [facility] DentonINR in Platelet poor plasma by Coagulation qyjuo1132-11-50 14:06:00* Test Item Value Reference Range Interpretation Comments Prothromb Time International Ratio (test code = 6301-6) 0.89 Oral Anticoagulant Therapy INR Values:1. Low Intensity Therapy 1.5 - 2.02 . Moderate Intensity Therapy 2.0 - 3.03. High Intensity Therapy(1) 2.5 - 3. 54. High Intensity Therapy(2) 3.0 - 4.05. Panic Value INR > 5.0 [facility] DentonActivated partial thromboplastin time (aPTT) in platelet poor plasma by coagulation iztcm3521-16-53 14:06:00* Test Item Value Reference Range Interpretation Comments Activated Partial Thromboplast Time (test code = 18225-6) 21.6 23.8-35.5 NO CLOT DETECTEDSL HEMOLYZED, OKAY PER DR. CAM [facility] DentonFibrin D-dimer DDU measurement in platelet poor plasma (mass/volume)2019-09-09 14:06:00* Test Item Value Reference Range Interpretation Comments D-Dimer Quantitative (PE/DVT) (test code = 43027-2) 2.11 0. 00-0.45 As with all in vitro diagnostic tests, the test results should be interpreted by the physician in conjunction with clinical findings and other test results.Test results are reported in NEW D-dimer units(ug/mLFEU).[facility] DentonFluoroscopic procedure less than one hour anozyvjv9050-74-33 14:06:00* Test Item Value Reference Range Interpretation Comments Lactic Acid Level (test code = Lactic Acid Level) 1.5 0.5- 2.0 [facility] magnesium measurement (mass/volume)2019-09-09 14:06:00* Test Item Value Reference Range Interpretation Comments Magnesium Level (test code = 24102-7) 1.9 1.3-2.1 [facility] DentonBNP Gjm-[id number] 14:06:00* Test Item Value Reference Range Interpretation Comments B-Type Natriuretic Peptide (test code = 77604-4) 11.3 0-100 [facility] DentonProthrombin time (PT) in platelet poor plasma by coagulation widbc6401-45-97 14:06:00* Test Item Value Reference Range Interpretation Comments Prothrombin Time (test code = 5902-2) 12.5 11.9-14.5 [facility] DentonINR in Platelet poor plasma by Coagulation tpksm4742-89-02 14:06:00* Test Item Value Reference Range Interpretation Comments Prothromb Time International Ratio (test code = 6301-6) 0.89 Oral Anticoagulant Therapy INR Values:1. Low Intensity Therapy 1.5 - 2.02 . Moderate Intensity Therapy 2.0 - 3.03. High Intensity Therapy(1) 2.5 - 3. 54. High Intensity Therapy(2) 3.0 - 4.05. Panic Value INR > 5.0 [facility] DentonActivated partial thromboplastin time (aPTT) in platelet poor plasma by coagulation [id number] 14:06:00* Test Item Value Reference Range Interpretation Comments Activated Partial Thromboplast Time (test code = 37725-7) 21.6 23.8-35.5 NO CLOT DETECTEDSL HEMOLYZED, OKAY PER DR. CAM [facility] DentonFibrin D-dimer DDU measurement in platelet poor plasma (mass/volume)2019-09-09 14:06:00* Test Item Value Reference Range Interpretation Comments D-Dimer Quantitative (PE/DVT) (test code = 62135-0) 2.11 0. 00-0.45 As with all in vitro diagnostic tests, the test results should be interpreted by the physician in conjunction with clinical findings and other test results.Test results are reported in NEW D-dimer units(ug/mLFEU).[facility] DentonFluoroscopic procedure less than one hour ccahmhoy0064-29-61 14:06:00* Test Item Value Reference Range Interpretation Comments Lactic Acid Level (test code = Lactic Acid Level) 1.5 0.5- 2.0 [facility] magnesium measurement (mass/volume)2019-09-09 14:06:00* Test Item Value Reference Range Interpretation Comments Magnesium Level (test code = 14999-2) 1.9 1.3-2.1 [facility] DentonBNP Jyw-mIjm3507-81-04 14:06:00* Test Item Value Reference Range Interpretation Comments B-Type Natriuretic Peptide (test code = 66260-9) 11.3 0-100 [facility] [id number] 12:52:32- BREAST ULTRASOUND BILATERALULTRASOUND OF BOTH BREASTS AND BOTH AXILLA: 03/31/2019CLINICAL: Abnormal mammogram. Comparison is made to exams dated 03/31/2019 mammogram, 09/06/2017 ultrasound biopsy, 09/06/2017 ultrasound, and 08/30/2017 ultrasound - [facility]-. Real-time ultrasound of both breasts [...] in 1 year.Joyce Dyson M.D. 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 Digital breast tomosynthesis was performed in addition to routine CC and MLO views. Current mammographic images were evaluated by either a [employer] M-Vu or a [employer] CAD (computer aided detection system). Comparison is made to exams dated 03/15/2019 mammogram, 09/06/2017 mammogram, and [facility] The tissue of the left breast is extremely dense, which lowers the sensitivity of mammography. No suspicious mass, architectural distortion, malignant type calcification, or lymph node abnormality detected. IMPRESSION: INCOMPLETE: ADDITIONAL IMAGING EVALUATION NEEDEDBilateral ultrasound pending for additional evaluation. Joyce Dyson M.D. dm/:03/31/2019 12:49:38 Entry: - 04/14/2019 11:23:04Imaging Technologist: Niki Lombardi FW, [facility]-Mammogram BI-RADS: 0 Incomplete: Additional Imaging Evaluation NeededDIAG MAMM LEFT [place] CAD DIGITAL 2019-03-31 12:49:38 - DIAG MAMM LEFT [place] CAD DIGITALUNILATERAL LEFT DIGITAL DIAGNOSTIC MAMMOGRAM 3D/2D WITH CAD: 03/31/2019CLINICAL: Abnormal Mammogram. Digital breast tomosynthesis was performed in addition to routine CC and MLO views. Current mammographic images were evaluated by either a [employer] M-Vu or a [employer] ImageChecker CAD (computer aided detection system). Comparison is made to exams dated 03/15/2019 mammogram, 09/06/2017 mammogram, and 08/30/2017 mammogram - [facility]-. The tissue of the left breast is extremely dense, which lowers the sensitivity of mammography. No suspicious mass, architectural distortion, malignant type calcification, or lymph node abnormality detected. IMPRESSION: INCOMPLETE: ADDITIONAL IMAGING EVALUATION NEEDEDBilateral ultrasound pending for additional evaluation. Joyce Dyson M.D. dm/:03/31/2019 12:49:38 Entry: - 04/14/2019 11:23:04Imaging Technologist: Niki Lombardi , [facility]-Mammogram BI-RADS: 0 Incomplete: Additional Imaging Evaluation NeededSCR MAMM BILATERAL [place] CAD [id number] 13:58:53 - SCR MAMM BILATERAL [place] CAD DIGITALBILATERAL DIGITAL SCREENING MAMMOGRAM 3D/2D WITH CAD: 03/15/2019Digital breast tomosynthesis was performed in addition to ro utine CC and MLO views. Current mammographic images were evaluated by either a [employer] M-Vu or a [employer] ImageChecker CAD (computer aided detection system). Co mparison is made to exams dated 08/17/2017 mammogram, 03/21/2012 mammogram, and mammogram - [facility]-. There are scattered fibroglandu lar tissues in both breasts. There is a left breast oval mass on MLO view, supe riorly, at posterior depth.No other suspicious mass, architectural distortion, m alignant type calcification, or lymph node abnormality detected. IMPRESSION: IN COMPLETE: ADDITIONAL IMAGING EVALUATION NEEDEDLEFT BREAST: Oval mass on MLO vie w, superiorly, at posterior depth. Ultrasound and possible tomosynthesis spot c ompression are recommended at this time.Shubham Lyle M.D. qn/:03/17/2019 13:58:53 Entry: - 03/22/2019 07:50:15copy to: Meliton Amado MD, ph: , fax: [phone] Technologist: Mana Frye , [facility]-letter sent: Additional Imaging Mammogram BI-RADS: 0 Incomplete: Additional Imaging Evaluation Needed
== END 2019-09-19 05:57 | disposition home or self-care (01) ==
LOC: FSED 05:15
DX: M25.562 Pain in left knee (principal); M25.561 Pain in right knee; J45.909 Unspecified asthma, uncomplicated
CPT/HCPCS: 96372; 99282; J1885; J2930

== ENCOUNTER 2019-10-03 19:09 | Emergency (ER) | payer OTHER ==
[~2019-10-03] VITALS: Ht 152.4 cm; Wt 81.2 kg
[2019-10-03] MEDS ORDERED: IBUPROFEN 400 MG TAB PO ONE (19:30)
--- OUTSIDE RECORDS SUMMARY | 2019-10-03 19:39 | XMS REPORT | Continuity of Care Document ---
Author Author [facility] t Organization [facility] Address [address] [place] [address] [address] [place] [address] Phone Unavailable Care Team Providers Care Respiratory Services Manager Name Role Phone MD ZACH COHN PCP Jose Cohn Attphys Malgorzata CAM Attphys Unavailable Elham Johnson Attphys Payers Payer Name Policy Type Policy Number Effective Date Expiration Date [facility] Excha [id number] 2019 00:0 0:00 [facility] Problems Condition Name Condition Details Condition Category Status Onset Date Resolution Date Last Treatment Date Treating Clinician Comments Source SOB SOB Active 08/24/2016 [facility] Diagnosis Act bebeto 2016-08-24 00:00:00 2016-08-25 11:47:00 M amy Dupree FINGER LACERATION FING ER LACERATION Active 12/07/2011 [facility] Active 2011-12-07 16:15:00 2011-12-07 17:46:00 [facility] Joon Urinary tract infection Problem Active [facility] Infection due to severe acute respiratory syndrome coronavir us 2 (SARS-CoV-2) Problem Active [facility] Nausea and vomiting Problem Active [facility] Exacerbation of asthma Problem Active [facility] Bilateral pneumonia Problem Active [facility] Knee pain Problem Active [facility] Scoliosis, unspecified Scol iosis, unspecified 08/28/2016 [...] Assigned At 1970 00:00:00 1970 00:00:00 Female [facility] Medications Ordered Medication Name Filled Medication Name Start Date Stop Da te Current Medication? Ordering Clinician Indication Dosage Frequency Signature (SIG) Comments Components Source Dexamethasone Dexamethasone 2019-09-11 17:19:00 Yes 6 Twice A Day [facility] Acetaminophen Acetaminophen 2019-09-10 14:16:00 Yes 650 Every 6 Hours as needed for Mild Pain (1-3) Or Fever>100.8 [facility] Ascorbic Acid Ascorbic Acid 2019-09-10 14:16:00 Yes 10 00 Twice A Day [facility] Azithromycin (Z-Bradford) 250 Mg TABLET Azithromycin (Z-Bradford) 250 Mg TABLET 2019-09-10 14:16:00 Yes 250 Tripack As Directed [facility] Benzonatate (Tessalon Perle) 100 Mg CAPSULE Benzonatat e (Tessalon Perle) 100 Mg CAPSULE 2019-09-10 14:16:00 Yes 100 Thre e Times A Day as needed for Cough [facility] Cholecalciferol Cholecalciferol 2019-09-10 14:16:00 Yes 400 Daily [facility] Ipratropium/Albuterol Sulfate (Combivent Respimat Inha l Penrose) 4 Gm AER.W.ADAP Ipratropium/Albuterol Sulfate (Combivent Respimat Inhal Penrose) 4 Gm AER.W.ADAP 2019-09-10 14:16:00 Yes 1 Rt Bid [facility] Zinc Sulfate Zinc Sulfate 2019-09-10 14:16:00 Yes 220 Twice A Day [facility] Ondansetron Hcl (Zofran*) 4 Mg TABLET Ondansetron Hcl (Zofra n*) 4 Mg TABLET 2019-08-24 17:37:00 2019-09-09 00:00:00 No 4 Every 6 Hours for Nausea/Vomiting [facility] tetanus-diphtheria toxoids adult intramuscular suspension 2011-12-07 22:18:00 No Parag Amado 0.5 ml, Ro aj: IM, Dosing Weight 72.727, kg, ONCE, STAT, Start date: 12/07/11 17:18:00, Stop date: 12/07/11 17:18:00 [facility] Tdap 2011-12-07 22:02:00 No Parag Amado 0.5 mL, Route: IM, Dosing Weight 72.727, kg, ONCE, Start date: 12/07/11 17:02:00, Stop date: 12/07/11 17:02:00 [facility] Albuterol Sulfate (Proventil Hfa) 6.7 Gm HFA.AER.AD Al buterol Sulfate (Proventil Hfa) 6.7 Gm HFA.AER.AD Yes 1 T hree Times A Day as needed for Shortness Of Breath [facility] Cetirizine Hcl Cetirizine Hcl Yes 10 Daily [facility] Dexamethasone Dexamethasone 2019-09-11 00:00:00 No 6 Twice A Day [facility] Ascorbic Acid (Vitamin C) 500 Mg TABLET Ascorbic Acid (Vitam in C) 500 Mg TABLET 2019-09-10 00:00:00 No 500 Daily [facility] Ipratropium/Albuterol Sulfate (Combivent Respimat Inha l Penrose) 4 Gm AER.W.ADAP Ipratropium/Albuterol Sulfate (Combivent Respimat Inhal Penrose) 4 Gm AER.W.ADAP 2019-09-10 00:00:00 No .5 [facility] Zinc Sulfate Zinc Sulfate 2019-09-10 00:00:00 No 220 Daily [facility] Vital Signs Vital Name Observation Time Observation Value Comments Source Body Temperature 2019-09-19 05:55:00 98.3 [degF] [facility] Weight 2019-09-19 04:55:00 178 [lb_av] [facility] BMI (Body Mass Index) 2019-09-19 04:55:00 34.8 kg/m2 [facility] Body Temperature 2019-09-11 16:05:00 98.2 [degF] [facility] BMI (Body Mass Index) 2019-09-09 20:29:00 31.5 kg/m2 [facility] Weight 2019-09-09 13:45:00 178 [lb_av] [facility] Body Temperature 2019-08-24 17:42:00 101.0 [degF] [facility] Weight 2019-08-24 16:00:00 178 [lb_av] [facility] BMI (Body Mass Index) 2019-08-24 16:00:00 34.8 kg/m2 [facility] Weight 2011-12-07 21:56:00 [facility] Height 2011-12-07 21:56:00 152.40 cm [facility] Procedures This patient has no known procedures. Plan of Care Planned Activity Planned Date Details Comments Source Instructions Joint Pain [facility] Encounters Start Date/Time End Date[facility] Source 2019-09-26 09:21:00 2019-09-26 23:59:00 Outpatient Zach Cohn [facility]IP [facility] [id number] 2019-09-19 05:15:00 2019-09-19 05:57:00 Departed Emergency Room [facility] [id number] [facility] 2019-09-09 16:07:00 2019-09-11 17:40:00 Discharged Inpatient 1 CHARELS CAM [facility] [id number] [facility] 2019-08-24 16:05:00 2019-08-24 17:57:00 Departed Emergency Room [facility] [id number] [facility] 2019-01-31 11:09:00 2019-01-31 23:59:00 Outpatient Zach Cohn [facility] [id number] 2016-08-25 11:09:00 2016-08-25 23:59:00 [facility] [id number] Results Test Description Test Time Test Comments Results Result Comments Source Urine color determination 2019-09-10 19:00:00 Test Item Urine Color (test code = 5778-6) STRAW YELLOW [facility] [id number] 19:00:00* Test Item Value Reference Range Interpretation Comments Urine Clarity (test code = 24059-2) SL CLOUDY CLEAR [facility] Urine by Test strip 2019-09-10 19:00:00* Test Item Value Reference Range Interpretation Comments Urine Specific [place] (test code = 5811-5) 1.030 1.010-1.02 5 [facility] pH measurement by automated test [id number] 19:00:00* Test Item Value Reference Range Interpretation Comments Urine pH (test code = 82271-9) 6 5-7 [facility] leukocyte esterase detection by ordtbick3283-43-61 19:00:00* Test Item Value Reference Range Interpretation Comments Urine Leukocyte Esterase (test code = 5799-2) TRACE NEGATIVE [facility] nitrite [id number] 19:00:00* Test Item Value Reference Range Interpretation Comments Urine Nitrite (test code = 02319-9) NEGATIVE NEGATIVE [facility] protein measurement by test strip (mass/volume)2019-09-10 19:00:00* Test Item Value Reference Range Interpretation Comments Urine Protein (test code = 5804-0) NEGATIVE NEGATIVE [facility] glucose sbawwirrx2484-46-17 19:00:00* Test Item Value Reference Range Interpretation Comments Urine Glucose (UA) (test code = 2349-9) 2+ NEGATIVE [facility] ketones detection by automated test [id number] 19:00:00* Test Item Value Reference Range Interpretation Comments Urine Ketones (test code = 29068-5) TRACE NEGATIVE [facility] urobilinogen measurement by test strip (mass/volume)2019-09-10 19:00:00* Test Item Value Reference Range Interpretation Comments Urine Urobilinogen (test code = 00774-8) 0.2 0.2-1 [facility] total bilirubin measurement (mass/volume)2019-09-10 19:00:00* Test Item Value Reference Range Interpretation Comments Urine Bilirubin (test code = 1978-6) NEGATIVE NEGATIVE [facility] erythrocytes cvoxbqvas3639-34-48 19:00:00* Test Item Value Reference Range Interpretation Comments Urine Blood (test code = 91044-6) MODERATE NEGATIVE [facility] urine sediment leukocyte count by microscopy (number/high power field)2019-09-10 19:00:00* Test Item Value Reference Range Interpretation Comments Urine WBC (test code = 5821-4) 6-10 0-5 [facility]rythrocytes detection in urine sediment by light omrgzvsblk7185-25-17 19:00:00* Test Item Value Reference Range Interpretation Comments Urine RBC (test code = 73316-8) 11-20 0-5 [facility]acteria detection in urine sediment by light [id number] 19:00:00* Test Item Value Reference Range Interpretation Comments Urine Bacteria (test code = 47059-3) MANY NONE [facility] Marshall[facility]pithelial cells detection in urine sediment by light lnwtgusdpx8567-35-15 19:00:00* Test Item Value Reference Range Interpretation Comments Urine Epithelial Cells (test code = 68303-5) MANY NONE [facility] MarshallTransitional cells detection in urine sediment by light desjbzcztj9469-08-17 19:00:00* Test Item Value Reference Range Interpretation Comments Urine Transitional Epithelial Cells (test code = 8249-5) MODERATE NONE [facility] color attzrgtklqfau4756-98-35 19:00:00* Test Item Value Reference Range Interpretation Comments Urine Color (test code = 5778-6) STRAW YELLOW [facility] [id number] 19:00:00* Test Item Value Reference Range Interpretation Comments Urine Clarity (test code = 22549-4) SL CLOUDY CLEAR [facility] gravity of Urine by Test strip 2019-09-10 19:00:00* Test Item Value Reference Range Interpretation Comments Urine Specific [place] (test code = 5811-5) 1.030 1.010-1.02 5 [facility] pH measurement by automated test ndtjg2582-12-70 19:00:00* Test Item Value Reference Range Interpretation Comments Urine pH (test code = 55107-3) 6 5-7 [facility] leukocyte esterase detection by dynfxxkn0179-83-16 19:00:00* Test Item Value Reference Range Interpretation Comments Urine Leukocyte Esterase (test code = 5799-2) TRACE NEGATIVE [facility] nitrite iqfohlrtk4134-69-09 19:00:00* Test Item Value Reference Range Interpretation Comments Urine Nitrite (test code = 86411-9) NEGATIVE NEGATIVE [facility] protein measurement by test strip (mass/volume)2019-09-10 19:00:00* Test Item Value Reference Range Interpretation Comments Urine Protein (test code = 5804-0) NEGATIVE NEGATIVE [facility] glucose ogionrmhx0152-43-15 19:00:00* Test Item Value Reference Range Interpretation Comments Urine Glucose (UA) (test code = 2349-9) 2+ NEGATIVE [facility] ketones detection by automated test xlomt8437-99-30 19:00:00* Test Item Value Reference Range Interpretation Comments Urine Ketones (test code = 93605-4) TRACE NEGATIVE [facility] urobilinogen measurement by test strip (mass/volume)2019-09-10 19:00:00* Test Item Value Reference Range Interpretation Comments Urine Urobilinogen (test code = 53684-0) 0.2 0.2-1 [facility] total bilirubin measurement (mass/volume)2019-09-10 19:00:00* Test Item Value Reference Range Interpretation Comments Urine Bilirubin (test code = 1978-6) NEGATIVE NEGATIVE [facility] erythrocytes ietpobplf0376-53-68 19:00:00* Test Item Value Reference Range Interpretation Comments Urine Blood (test code = 85492-2) MODERATE NEGATIVE [facility] urine sediment leukocyte count by microscopy (number/high power field)2019-09-10 19:00:00* Test Item Value Reference Range Interpretation Comments Urine WBC (test code = 5821-4) 6-10 0-5 [facility] Marshall[facility]rythrocytes detection in urine sediment by light ffvofgpnhb9565-81-13 19:00:00* Test Item Value Reference Range Interpretation Comments Urine RBC (test code = 22990-4) 11-20 0-5 [facility] Marshall[facility]acteria detection in urine sediment by light mdqhmcqhzd2303-36-39 19:00:00* Test Item Value Reference Range Interpretation Comments Urine Bacteria (test code = 88708-6) MANY NONE [facility] MarshallEpithelial cells detection in urine sediment by light holhmxihjx5291-33-10 19:00:00* Test Item Value Reference Range Interpretation Comments Urine Epithelial Cells (test code = 00923-7) MANY NONE [facility] MarshallTransitional cells detection in urine sediment by light nladwyywjq7941-96-26 19:00:00* Test Item Value Reference Range Interpretation Comments Urine Transitional Epithelial Cells (test code = 8249-5) MODERATE NONE [facility] Marshall[facility]illary blood glucose measurement by glucometer (mass/volume)2019-09-10 07:09:00* Test Item Value Reference Range Interpretation Comments Bedside Glucose (test code = 64955-4) 117 70-120 Meter ID: [id number] MarshallCapillary blood glucose measurement by glucometer (mass/volume)2019-09-10 07:09:00* Test Item Value Reference Range Interpretation Comments Bedside Glucose (test code = 39245-4) 117 70-120 Meter ID: [id number] [facility] MarshallBlood leukocytes automated count (number/volume)2019-09-10 05:20:00* Test Item Value Reference Range Interpretation Comments White Blood Count (test code = 6690-2) 12.90 4.8-10.8 [facility] erythrocytes automated count (number/volume)2019-09-10 05:20:00* Test Item Value Reference Range Interpretation Comments Red Blood Count (test code = 789-8) 4.05 3.6-5.1 [facility] [place] hemoglobin measurement (moles/volume)2019-09-10 05:20:00* Test Item Value Reference Range Interpretation Comments Hemoglobin (test code = 78082-9) 12.8 12.0-16.0 [facility] MarshallAutomated blood hematocrit (volume fraction)2019-09-10 05:20:00* Test Item Value Reference Range Interpretation Comments Hematocrit (test code = 4544-3) 37.3 34.2-44.1 [facility] MarshallAutomated erythrocyte mean corpuscular lrhgqo7941-33-88 05:20:00* Test Item Value Reference Range Interpretation Comments Mean Corpuscular Volume (test code = 787-2) 92.1 81-99 [facility] MarshallAutomated erythrocyte mean corpuscular hemoglobin (mass per erythrocyte)2019-09-10 05:20:00* Test Item Value Reference Range Interpretation Comments Mean Corpuscular Hemoglobin (test code = 785-6) 31.6 28-32 [facility] MarshallAutomated erythrocyte mean corpuscular hemoglobin concentration measurement (mass/volume)2019-09-10 05:20:00* Test Item Value Reference Range Interpretation Comments Mean Corpuscular Hemoglobin Concent (test code = 786-4) 34.3 31-35 [facility] MarshallRDW UgvBi-Ogs4528-47-05 05:20:00* Test Item Value Reference Range Interpretation Comments Red Cell Distribution Width (test code = 20672-9) 12.5 11.7 -14.4 [facility]Autblowing [facility] hospitaled blood platelet count (count/volume)2019-09-10 05:20:00* Test Item Value Reference Range Interpretation Comments Platelet Count (test code = 777-3) 473 140-360 [facility] MarshallAutblow[facility] hospitaled blood segmented neutrophil count as percentage of total ajiykafxgu8809-48-08 05:20:00* Test Item Value Reference Range Interpretation Comments Neutrophils (%) (Auto) (test code = 29031-2) 86.8 38.7-80.0 [facility] MarshallAutomated blood lymphocyte count as percentage ot total fonchwbeij3244-00-77 05:20:00* Test Item Value Reference Range Interpretation Comments Lymphocytes (%) (Auto) (test code = 736-9) 10.3 18.0-39.1 [facility] MarshallAutomated blood monocyte count as percentage of total jpytbnodsz3431-17-81 05:20:00* Test Item Value Reference Range Interpretation Comments Monocytes (%) (Auto) (test code = 5905-5) 1.5 4.4-11.3 [facility] MarshallAutomated blood eosinophil count as percentage of total sngsyymswp0275-00-29 05:20:00* Test Item Value Reference Range Interpretation Comments Eosinophils (%) (Auto) (test code = 713-8) 0.0 0.0-6.0 [facility] MarshallAutomated blood basophil count as percentage of total eixwbrltvv8870-62-28 05:20:00* Test Item Value Reference Range Interpretation Comments Basophils (%) (Auto) (test code = 706-2) 0.2 0.0-1.0 [facility] MarshallFluoroscopic procedure less than one hour lifiaqbf0086-35-46 05:20:00* Test Item Value Reference Range Interpretation Comments IM GRANULOCYTES % (test code = IM GRANULOCYTES %) 1.2 0.0- 1.0 [facility] MarshallAutomated blood neutrophil count 2019-09-10 05:20:00* Test Item Value Reference Range Interpretation Comments Neutrophils # (Auto) (test code = 751-8) 11.2 2.1-6.9 [facility] Marshall[facility] lymphocytes count (number/volume) 2019-09-10 05:20:00* Test Item Value Reference Range Interpretation Comments Lymphocytes # (Auto) (test code = 97452-6) 1.3 1.0-3.2 [facility] MarshallBlood monocytes automated count (number/volume)2019-09-10 05:20:00* Test Item Value Reference Range Interpretation Comments Monocytes # (Auto) (test code = 742-7) 0.2 0.2-0.8 [facility] MarshallAutomated blood eosinophil count 2019-09-10 05:20:00* Test Item Value Reference Range Interpretation Comments Eosinophils # (Auto) (test code = 711-2) 0.0 0.0-0.4 [facility] MarshallAutomated blood basophil count (count/volume)2019-09-10 05:20:00* Test Item Value Reference Range Interpretation Comments Basophils # (Auto) (test code = 704-7) 0.0 0.0-0.1 [facility] MarshallFluoroscopic procedure less than one hour atfgusxn8614-04-59 05:20:00* Test Item Value Reference Range Interpretation Comments Absolute Immature Granulocyte (auto (hima t code = Absolute Immature Granulocyte (auto) 0.15 0-0.1 [facility]villeerum or plasma sodium measurement (moles/volume)2019-09-10 05:20:00* Test Item Value Reference Range Interpretation Comments Sodium Level (test code = 2951-2) 137 136-145 [facility]villeerum or plasma potassium measurement (moles/volume)2019-09-10 05:20:00* Test Item Value Reference Range Interpretation Comments Potassium Level (test code = 2823-3) 4.1 3.5-5.1 [facility]villeerum or plasma chloride measurement (moles/volume)2019-09-10 05:20:00* Test Item Value Reference Range Interpretation Comments Chloride Level (test code = 2075-0) 106 98-107 [facility]villeerum or plasma carbon dioxide, total measurement (moles/volume)2019-09-10 05:20:00* Test Item Value Reference Range Interpretation Comments Carbon Dioxide Level (test code = 2028-9) 22 22-29 [facility]villeerum or plasma anion kul5427-21-40 05:20:00* Test Item Value Reference Range Interpretation Comments Anion Gap (test code = 37539-6) 13.1 8-16 [facility]villeerum or plasma urea nitrogen measurement (mass/volume)2019-09-10 05:20:00* Test Item Value Reference Range Interpretation Comments Blood Urea Nitrogen (test code = 3094-0) 20 7-26 [facility]villeerum or plasma creatinine measurement (mass/volume)2019-09-10 05:20:00* Test Item Value Reference Range Interpretation Comments Creatinine (test code = 2160-0) 0.63 0.57-1.11 [facility]villeerum or plasma urea nitrogen/creatinine mass ixkfe8452-41-97 05:20:00* Test Item Value Reference Range Interpretation Comments BUN/Creatinine Ratio (test code = 3097-3) 32 6-25 [facility] MarshallEstimated glomerular filtration rate (GFR) aeepsqjzjrnvw8048-87-54 05:20:00* Test Item Value Reference Range Interpretation Comments Estimat Glomerular Filtration Rate (test code = 339354031) > 60 >60 Ranges were taken from the National Kidney Disease Education Program and the [facility] Kidney Foundation literature.Reference ranges:60 or greater: Zolxni30-60 ( for 3 consecutive months): Chronic kidney disease 15 or less: Kidney failureCHRISTUS Good Shepherd Medical Center – MarshallGlucose rtgoloamhwt5450-81-91 05:20:00* Test Item Value Reference Range Interpretation Comments Glucose Level (test code = LPC0504) 149 74-118 [facility]villeerum or plasma calcium measurement (mass/volume)2019-09-10 05:20:00* Test Item Value Reference Range Interpretation Comments Calcium Level (test code = 39338-2) 8.7 8.4-10.2 [facility] MarshallFluoroscopic procedure less than one hour xdvldbxw2151-23-10 05:20:00* Test Item Value Reference Range Interpretation Comments Hemoglobin A1c Percent (test code = Hemoglobin A1c Percent) 5.7 4.0-7.0 [facility] MarshallPhosphorus asjwfvbshvh1353-84-97 05:20:00 * Test Item Value Reference Range Interpretation Comments Phosphorus Level (test code = HJR9199) 3.3 2.3-4.7 [facility]ville[facility]um or plasma total bilirubin measurement (mass/volume)2019-09-10 05:20:00* Test Item Value Reference Range Interpretation Comments Total Bilirubin (test code = 1975-2) 0.6 0.2-1.2 [facility] MarshallFluoroscopic procedure less than one hour zricvgfw9569-11-31 05:20:00* Test Item Value Reference Range Interpretation Comments Aspartate Amino Transf (AST/SGOT) (test code = Aspartate Amino Transf (AST/SGOT)) 16 5-34 [facility]villeerum or plasma alanine aminotransferase measurement (enzymatic activity/volume)2019-09-10 05:20:00* Test Item Value Reference Range Interpretation Comments Alanine Aminotransferase (ALT/SGPT) (test code = 1742-6) 47 0-55 [facility]villeerum or plasma protein measurement (mass/volume)2019-09-10 05:20:00* Test Item Value Reference Range Interpretation Comments Total Protein (test code = 2885-2) 6.7 6.5-8.1 [facility] [place] albumin measurement (mass/volume)2019-09-10 05:20:00* Test Item Value Reference Range Interpretation Comments Albumin (test code = 1751-7) 2.9 3.5-5.0 [facility] Marshall[facility]asma globulin measurement (mass/volume) 2019-09-10 05:20:00* Test Item Value Reference Range Interpretation Comments Globulin (test code = 47452-1) 3.8 2.3-3.5 [facility] [place] albumin/globulin mass mprav9655-31-91 05:20:00* Test Item Value Reference Range Interpretation Comments Albumin/Globulin Ratio (test code = 1759-0) 0.8 0.8-2.0 [facility] [place] [place] alkaline phosphatase measurement (enzymatic activity/volume)2019-09-10 05:20:00* Test Item Value Reference Range Interpretation Comments Alkaline Phosphatase (test code = 6768-6) 62 40-150 [facility] [place] [place] triglyceride measurement (mass/volume)2019-09-10 05:20:00* Test Item Value Reference Range Interpretation Comments Triglycerides Level (test code = 2571-8) 68 0-149 [facility] [place] [place] cholesterol measurement (mass/volume)2019-09-10 05:20:00* Test Item Value Reference Range Interpretation Comments Cholesterol Level (test code = 2093-3) 195 0-199 Less than 200 mg/dL Low Npkt962 - 239 mg/dL Borderline Gkgv608 m g/dl and greater High Risk [facility] [place] [place] cholesterol in LDL measurement (mass/volume) 2019-09-10 05:20:00* Test Item Value Reference Range Interpretation Comments LDL Cholesterol (test code = 2089-1) 128 60-130 [facility] [place] [place] cholesterol in HDL measurement (mass/volume)2019-09-10 05:20:00* Test Item Value Reference Range Interpretation Comments HDL Cholesterol (test code = 2085-9) 53 40-60 [facility] [place] [place] plasma total cholesterol/cholesterol in HDL mass irnzv0288-05-44 05:20:00* Test Item Value Reference Range Interpretation Comments Cholesterol/HDL Ratio (test code = 9830-1) 3.7 3.0-3.6 [facility] [place] [place] creatine kinase measurement (enzymatic activity/volume)2019-09-10 05:20:00* Test Item Value Reference Range Interpretation Comments Creatine Kinase (test code = 2157-6) 15 29-168 [facility] [place] plasma creatine kinase MB measurement (mass/volume)2019-09-10 05:20:00* Test Item Value Reference Range Interpretation Comments Creatine Kinase MB (test code = 26053-7) 0.30 0-5.0 [facility] MarshallTroponin I measurement by highly sensitive enzyme vsjlplagrfm0415-06-17 05:20:00* Test Item Value Reference Range Interpretation Comments Troponin I (test code = 09667-3) < 0.001 0-0.300 [facility] [place] [place] thyrotropin measurement by detection limit <= 0.005 miu/l (units/volume)2019-09-10 05:20:00* Test Item Value Reference Range Interpretation Comments Thyroid Stimulating Hormone (TSH) (test code = 52786-6) 0.291 0.350-4.940 [facility] MarshallBlood leukocytes automated count (number/volume)2019-09-10 05:20:00* Test Item Value Reference Range Interpretation Comments White Blood Count (test code = 6690-2) 12.90 4.8-10.8 [facility] MarshallBlood erythrocytes automated count (number/volume)2019-09-10 05:20:00* Test Item Value Reference Range Interpretation Comments Red Blood Count (test code = 789-8) 4.05 3.6-5.1 [facility] MarshallBlood hemoglobin measurement (moles/volume)2019-09-10 05:20:00* Test Item Value Reference Range Interpretation Comments Hemoglobin (test code = 54801-9) 12.8 12.0-16.0 [facility] MarshallAutomated blood hematocrit (volume fraction)2019-09-10 05:20:00* Test Item Value Reference Range Interpretation Comments Hematocrit (test code = 4544-3) 37.3 34.2-44.1 [facility] MarshallAutomated erythrocyte mean corpuscular lpqepm7823-47-64 05:20:00* Test Item Value Reference Range Interpretation Comments Mean Corpuscular Volume (test code = 787-2) 92.1 81-99 [facility] MarshallAutomated erythrocyte mean corpuscular hemoglobin (mass per erythrocyte)2019-09-10 05:20:00* Test Item Value Reference Range Interpretation Comments Mean Corpuscular Hemoglobin (test code = 785-6) 31.6 28-32 [facility] MarshallAutomated erythrocyte mean corpuscular hemoglobin concentration measurement (mass/volume)2019-09-10 05:20:00* Test Item Value Reference Range Interpretation Comments Mean Corpuscular Hemoglobin Concent (test code = 786-4) 34.3 31-35 [facility] MarshallRDW GsaSn-Ayo4718-70-05 05:20:00* Test Item Value Reference Range Interpretation Comments Red Cell Distribution Width (test code = 84602-5) 12.5 11.7 -14.4 [facility] MarshallAutomated blood platelet count (count/volume)2019-09-10 05:20:00* Test Item Value Reference Range Interpretation Comments Platelet Count (test code = 777-3) 473 140-360 [facility] MarshallAutomated blood segmented neutrophil count as percentage of total cvuzqvhqkg3383-63-76 05:20:00* Test Item Value Reference Range Interpretation Comments Neutrophils (%) (Auto) (test code = 54720-0) 86.8 38.7-80.0 [facility] MarshallAutomated blood lymphocyte count as percentage ot total oeikkrhvjc4485-73-57 05:20:00* Test Item Value Reference Range Interpretation Comments Lymphocytes (%) (Auto) (test code = 736-9) 10.3 18.0-39.1 [facility] MarshallAutomated blood monocyte count as percentage of total xlmqabjvxo8961-67-62 05:20:00* Test Item Value Reference Range Interpretation Comments Monocytes (%) (Auto) (test code = 5905-5) 1.5 4.4-11.3 [facility] MarshallAutomated blood eosinophil count as percentage of total olnnyesvgb1604-50-28 05:20:00* Test Item Value Reference Range Interpretation Comments Eosinophils (%) (Auto) (test code = 713-8) 0.0 0.0-6.0 [facility] MarshallAutomated blood basophil count as percentage of total egijpjxwzj7958-76-44 05:20:00* Test Item Value Reference Range Interpretation Comments Basophils (%) (Auto) (test code = 706-2) 0.2 0.0-1.0 [facility] MarshallFluoroscopic procedure less than one hour kxvhhctx7473-62-71 05:20:00* Test Item Value Reference Range Interpretation Comments IM GRANULOCYTES % (test code = IM GRANULOCYTES %) 1.2 0.0- 1.0 [facility] MarshallAutomated blood neutrophil count 2019-09-10 05:20:00* Test Item Value Reference Range Interpretation Comments Neutrophils # (Auto) (test code = 751-8) 11.2 2.1-6.9 [facility] MarshallBlood lymphocytes count (number/volume) 2019-09-10 05:20:00* Test Item Value Reference Range Interpretation Comments Lymphocytes # (Auto) (test code = 83097-9) 1.3 1.0-3.2 [facility] MarshallBlood monocytes automated count (number/volume)2019-09-10 05:20:00* Test Item Value Reference Range Interpretation Comments Monocytes # (Auto) (test code = 742-7) 0.2 0.2-0.8 [facility] MarshallAutomated blood eosinophil count 2019-09-10 05:20:00* Test Item Value Reference Range Interpretation Comments Eosinophils # (Auto) (test code = 711-2) 0.0 0.0-0.4 [facility] MarshallAutomated blood basophil count (count/volume)2019-09-10 05:20:00* Test Item Value Reference Range Interpretation Comments Basophils # (Auto) (test code = 704-7) 0.0 0.0-0.1 [facility] MarshallFluoroscopic procedure less than one hour kmrltneo4278-96-89 05:20:00* Test Item Value Reference Range Interpretation Comments Absolute Immature Granulocyte (auto (hima t code = Absolute Immature Granulocyte (auto) 0.15 0-0.1 [facility] [place] sodium measurement (moles/volume)2019-09-10 05:20:00* Test Item Value Reference Range Interpretation Comments Sodium Level (test code = 2951-2) 137 136-145 [facility] [place]er[place] plasma potassium measurement (moles/volume)2019-09-10 05:20:00* Test Item Value Reference Range Interpretation Comments Potassium Level (test code = 2823-3) 4.1 3.5-5.1 [facility] [place] chloride measurement (moles/volume)2019-09-10 05:20:00* Test Item Value Reference Range Interpretation Comments Chloride Level (test code = 2075-0) 106 98-107 [facility] [place] or plasma carbon dioxide, total measurement (moles/volume)2019-09-10 05:20:00* Test Item Value Reference Range Interpretation Comments Carbon Dioxide Level (test code = 2028-9) 22 22-29 [facility] [place] or plasma anion lod0756-46-45 05:20:00* Test Item Value Reference Range Interpretation Comments Anion Gap (test code = 23091-5) 13.1 8-16 [facility] [place] plasma urea nitrogen measurement (mass/volume)2019-09-10 05:20:00* Test Item Value Reference Range Interpretation Comments Blood Urea Nitrogen (test code = 3094-0) 20 7-26 [facility] [place] plasma creatinine measurement (mass/volume)2019-09-10 05:20:00* Test Item Value Reference Range Interpretation Comments Creatinine (test code = 2160-0) 0.63 0.57-1.11 [facility] [place] plasma urea nitrogen/creatinine mass okyhs7723-19-26 05:20:00* Test Item Value Reference Range Interpretation Comments BUN/Creatinine Ratio (test code = 3097-3) 32 6-25 [facility] MarshallEstimated glomerular filtration rate (GFR) aofvqadluvlyy5150-79-88 05:20:00* Test Item Value Reference Range Interpretation Comments Estimat Glomerular Filtration Rate (test code = 481376228) > 60 >60 Ranges were taken from the National Kidney Disease Education Program and the [facility], [facility] [employer] literature.Reference ranges:60 or greater: Izeimt16-41 ( for 3 consecutive months): Chronic kidney disease 15 or less: Kidney failureCHRISTUS [facility] Center – MarshallGlucose ipvrfybxcfn8226-00-77 05:20:00* Test Item Value Reference Range Interpretation Comments Glucose Level (test code = DEX0324) 149 74-118 [facility] [place] plasma calcium measurement (mass/volume)2019-09-10 05:20:00* Test Item Value Reference Range Interpretation Comments Calcium Level (test code = 43676-1) 8.7 8.4-10.2 [facility] MarshallFluoroscopic procedure less than one hour xsrzlmcy7555-43-15 05:20:00* Test Item Value Reference Range Interpretation Comments Hemoglobin A1c Percent (test code = Hemoglobin A1c Percent) 5.7 4.0-7.0 [facility] MarshallPhosphorus vsuyrprhcsh5339-33-88 05:20:00 * Test Item Value Reference Range Interpretation Comments Phosphorus Level (test code = YPU7903) 3.3 2.3-4.7 [facility] [place] [place] total bilirubin measurement (mass/volume)2019-09-10 05:20:00* Test Item Value Reference Range Interpretation Comments Total Bilirubin (test code = 1975-2) 0.6 0.2-1.2 [facility] MarshallFluoroscopic procedure less than one hour widdtdcb3015-10-17 05:20:00* Test Item Value Reference Range Interpretation Comments Aspartate Amino Transf (AST/SGOT) (test code = Aspartate Amino Transf (AST/SGOT)) 16 5-34 [facility] [place] [place] alanine aminotransferase measurement (enzymatic activity/volume)2019-09-10 05:20:00* Test Item Value Reference Range Interpretation Comments Alanine Aminotransferase (ALT/SGPT) (test code = 1742-6) 47 0-55 [facility] [place] or plasma protein measurement (mass/volume)2019-09-10 05:20:00* Test Item Value Reference Range Interpretation Comments Total Protein (test code = 2885-2) 6.7 6.5-8.1 [facility] [place] or plasma albumin measurement (mass/volume)2019-09-10 05:20:00* Test Item Value Reference Range Interpretation Comments Albumin (test code = 1751-7) 2.9 3.5-5.0 [facility] MarshallPlasma globulin measurement (mass/volume) 2019-09-10 05:20:00* Test Item Value Reference Range Interpretation Comments Globulin (test code = 11428-6) 3.8 2.3-3.5 [facility] [place] or plasma albumin/globulin mass ztzmo4942-31-02 05:20:00* Test Item Value Reference Range Interpretation Comments Albumin/Globulin Ratio (test code = 1759-0) 0.8 0.8-2.0 [facility] [place] or plasma alkaline phosphatase measurement (enzymatic activity/volume)2019-09-10 05:20:00* Test Item Value Reference Range Interpretation Comments Alkaline Phosphatase (test code = 6768-6) 62 40-150 [facility] [place] or plasma triglyceride measurement (mass/volume)2019-09-10 05:20:00* Test Item Value Reference Range Interpretation Comments Triglycerides Level (test code = 2571-8) 68 0-149 [facility] [place]villeerum or plasma cholesterol measurement (mass/volume)2019-09-10 05:20:00* Test Item Value Reference Range Interpretation Comments Cholesterol Level (test code = 2093-3) 195 0-199 Less than 200 mg/dL Low Siug568 - 239 mg/dL Borderline Qdky088 m g/dl and greater High Risk [facility] [place] or plasma cholesterol in LDL measurement (mass/volume) 2019-09-10 05:20:00* Test Item Value Reference Range Interpretation Comments LDL Cholesterol (test code = 2089-1) 128 60-130 [facility] [place]erum or plasma cholesterol in HDL measurement (mass/volume)2019-09-10 05:20:00* Test Item Value Reference Range Interpretation Comments HDL Cholesterol (test code = 2085-9) 53 40-60 [facility] [place]erum or plasma total cholesterol/cholesterol in HDL mass qfdsh0971-06-13 05:20:00* Test Item Value Reference Range Interpretation Comments Cholesterol/HDL Ratio (test code = 9830-1) 3.7 3.0-3.6 [facility] [place] or plasma creatine kinase measurement (enzymatic activity/volume)2019-09-10 05:20:00* Test Item Value Reference Range Interpretation Comments Creatine Kinase (test code = 2157-6) 15 29-168 [facility] [place]erum or plasma creatine kinase MB measurement (mass/volume)2019-09-10 05:20:00* Test Item Value Reference Range Interpretation Comments Creatine Kinase MB (test code = 82779-2) 0.30 0-5.0 [facility] MarshallTroponin I measurement by highly sensitive enzyme rnyjqnhnpcu9648-56-97 05:20:00* Test Item Value Reference Range Interpretation Comments Troponin I (test code = 97335-5) < 0.001 0-0.300 [facility] [place] or plasma thyrotropin measurement by detection limit <= 0.005 miu/l (units/volume)2019-09-10 05:20:00* Test Item Value Reference Range Interpretation Comments Thyroid Stimulating Hormone (TSH) (test code = 13058-7) 0.291 0.350-4.940 [facility] - IANK0985-14-11 15:10:00 [facility] [address] [address] Patient Name: JOHNNY CARTY MR #: [id number] : 1970 Age/Sex: 49/F Req #: [id number] Adm Physician: Ordered by: CHARLES CAM Report #: [id number] Location: [facility] Room/Bed: Procedure: [id number] HOPD/CXR 1 - HOPD Exam Date: 09/09/19 Exam Time: 1443 REPORT [...] CRONIN MD 12 Transcribed By: CARLEE on 09/09/191512 COPY TO: CHARLES COLLINS Blood tsuazzb1126-75-12 14:45:00* Test Item Value Reference Range Interpretation Comments Blood Culture (test code = 04959016) NO GROWTH AFTER 48 HOURS [facility] MarshallBlood mnmtybm5253-68-82 14:45:00* Test Item Value Reference Range Interpretation Comments Blood Culture (test code = 67759570) NO GROWTH AFTER 5 DAYS, FINAL REPORT [facility] MarshallFluoroscopic procedure less than one hour fdmwsfrx7962-49-38 14:38:00* Test Item Value Reference Range Interpretation [...] from individuals suspected of COVID-19 by their [facility] provider. This test has not been Food [...] under 564(g) of the ACT.Testing performed by [facility] [place] [address]47NJQCHRISTUS [facility] Shepherd [facility] Center – MarshallFluoroscopic procedure less than one hour kfkgkxbg7188-91-55 14:38:00* Test Item Value Reference Range Interpretation [...] from individuals suspected of COVID-19 by their [facility] provider. This test has not been Food [...] under 564(g) of the ACT.Testing performed by [facility] [place] [id number] [place], [place] [address]Prothrombin time (PT) in platelet poor plasma by coagulation wuump8003-71-96 14:06:00* Test Item Value Reference Range Interpretation Comments Prothrombin Time (test code = 5902-2) 12.5 11.9-14.5 [facility] MarshallINR in Platelet poor plasma by Coagulation jouen7461-29-17 14:06:00* Test Item Value Reference Range Interpretation Comments Prothromb Time International Ratio (test code = 6301-6) 0.89 Oral Anticoagulant Therapy INR Values:1. Low Intensity Therapy 1.5 - 2.02 . Moderate Intensity Therapy 2.0 - 3.03. High Intensity Therapy(1) 2.5 - 3. 54. High Intensity Therapy(2) 3.0 - 4.05. Panic Value INR > 5.0 [facility] MarshallActivated partial thromboplastin time (aPTT) in platelet poor plasma by coagulation mumkd6300-44-43 14:06:00* Test Item Value Reference Range Interpretation Comments Activated Partial Thromboplast Time (test code = 86891-0) 21.6 23.8-35.5 NO CLOT DETECTEDSL HEMOLYZED, OKAY PER DR. CAM [facility] MarshallFibrin D-dimer DDU measurement in platelet poor plasma (mass/volume)2019-09-09 14:06:00* Test Item Value Reference Range Interpretation Comments D-Dimer Quantitative (PE/DVT) (test code = 56235-9) 2.11 0. 00-0.45 As with all in vitro diagnostic tests, the test results should be interpreted by the physician in conjunction with clinical findings and other test results.Test results are reported in NEW D-dimer units(ug/mLFEU).[facility] MarshallFluoroscopic procedure less than one hour zmtcuenu2517-69-12 14:06:00* Test Item Value Reference Range Interpretation Comments Lactic Acid Level (test code = Lactic Acid Level) 1.5 0.5- 2.0 [facility] [place] or plasma magnesium measurement (mass/volume)2019-09-09 14:06:00* Test Item Value Reference Range Interpretation Comments Magnesium Level (test code = 11795-7) 1.9 1.3-2.1 [facility] MarshallBNP Jul-iDvd7728-55-04 14:06:00* Test Item Value Reference Range Interpretation Comments B-Type Natriuretic Peptide (test code = 85690-6) 11.3 0-100 [facility] MarshallProthrombin time (PT) in platelet poor plasma by coagulation mqkvq0220-61-79 14:06:00* Test Item Value Reference Range Interpretation Comments Prothrombin Time (test code = 5902-2) 12.5 11.9-14.5 [facility] MarshallINR in Platelet poor plasma by Coagulation hzllj7416-94-44 14:06:00* Test Item Value Reference Range Interpretation Comments Prothromb Time International Ratio (test code = 6301-6) 0.89 Oral Anticoagulant Therapy INR Values:1. Low Intensity Therapy 1.5 - 2.02 . Moderate Intensity Therapy 2.0 - 3.03. High Intensity Therapy(1) 2.5 - 3. 54. High Intensity Therapy(2) 3.0 - 4.05. Panic Value INR > 5.0 [facility] MarshallActivated partial thromboplastin time (aPTT) in platelet poor plasma by coagulation vapsm0162-70-86 14:06:00* Test Item Value Reference Range Interpretation Comments Activated Partial Thromboplast Time (test code = 90575-5) 21.6 23.8-35.5 NO CLOT DETECTEDSL HEMOLYZED, OKAY PER DR. CAM [facility] MarshallFibrin D-dimer DDU measurement in platelet poor plasma (mass/volume)2019-09-09 14:06:00* Test Item Value Reference Range Interpretation Comments D-Dimer Quantitative (PE/DVT) (test code = 81019-9) 2.11 0. 00-0.45 As with all in vitro diagnostic tests, the test results should be interpreted by the physician in conjunction with clinical findings and other test results.Test results are reported in NEW D-dimer units(ug/mLFEU).[facility] MarshallFluoroscopic procedure less than one hour rpeabahx9394-70-27 14:06:00* Test Item Value Reference Range Interpretation Comments Lactic Acid Level (test code = Lactic Acid Level) 1.5 0.5- 2.0 [facility] [place] plasma magnesium measurement (mass/volume)2019-09-09 14:06:00* Test Item Value Reference Range Interpretation Comments Magnesium Level (test code = 46571-4) 1.9 1.3-2.1 [facility] MarshallBNP Xfh-eSxe8449-98-04 14:06:00* Test Item Value Reference Range Interpretation Comments B-Type Natriuretic Peptide (test code = 09930-6) 11.3 0-100 [facility] MarshallBREAST ULTRASOUND GDQCXTWZW1732-85-49 12:52:32- BREAST ULTRASOUND BILATERALULTRASOUND OF BOTH BREASTS AND BOTH AXILLA: 03/31/2019CLINICAL: Abnormal mammogram. Comparison is made to exams dated 03/31/2019 mammogram, 09/06/2017 ultrasound biopsy, 09/06/2017 ultrasound, and 08/30/2017 ultrasound - [facility]-. Real-time ultrasound of both breasts [...] in 1 year.Joyce Dyson M.D. 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 Digital breast tomosynthesis was performed in addition to routine CC and MLO views. Current mammographic images were evaluated by either a [employer] M-Vu or a [employer] ImageTimeCastcker CAD (computer aided detection system). Comparison is made to exams dated 03/15/2019 mammogram, 09/06/2017 mammogram, and 08/30/2017 [facility]. The tissue of the left breast is extremely dense, which lowers the sensitivity of mammography. No suspicious mass, architectural distortion, malignant type calcification, or lymph node abnormality detected. IMPRESSION: INCOMPLETE: ADDITIONAL IMAGING EVALUATION NEEDEDBilateral ultrasound pending for additional evaluation. Joyce Dyson M.D. dm/:03/31/2019 12:49:38 Entry: - 04/14/2019 11:23:04Imaging Technologist: Niki Lombardi , [facility] ANNISTONMammogram BI-RADS: 0 Incomplete: Additional Imaging Evaluation NeededDIAG MAMM LEFT [place] CAD DIGITAL 2019-03-31 12:49:38 - DIAG MAMM LEFT [place] CAD DIGITALUNILATERAL LEFT DIGITAL DIAGNOSTIC MAMMOGRAM 3D/2D WITH CAD: 03/31/2019CLINICAL: Abnormal Mammogram. Digital breast tomosynthesis was performed in addition to routine CC and MLO views. Current mammographic images were evaluated by either a [employer] M-Vu or a [employer] ImageChecker CAD (computer aided detection system). Comparison is made to exams dated 03/15/2019 mammogram, 09/06/2017 mammogram, and 08/30/2017 [facility]. The tissue of the left breast is extremely dense, which lowers the sensitivity of mammography. No suspicious mass, architectural distortion, malignant type calcification, or lymph node abnormality detected. IMPRESSION: INCOMPLETE: ADDITIONAL IMAGING EVALUATION NEEDEDBilateral ultrasound pending for additional evaluation. Joyce Dyson M.D. dm/:03/31/2019 12:49:38 Entry: - 04/14/2019 11:23:04Imaging Technologist: Niki Lombardi , [facility]NOLAND [facility]: 0 In[facility]: Additional Imaging Evaluation NeededSCR MAMM BILATERAL [place] CAD [id number] 13:58:53 - SCR MAMM BILATERAL [place] CAD DIGITALBILATERAL DIGITAL SCREENING MAMMOGRAM 3D/2D WITH CAD: 03/15/2019Digital breast tomosynthesis was performed in addition to ro utine CC and MLO views. Current mammographic images were evaluated by either a [employer] M-Vu or a [employer] ImageChecker CAD (computer aided detection system). Co mparison is made to exams dated 08/17/2017 mammogram, 03/21/2012 mammogram, [facility] There are scattered fibroglandu lar tissues in [...] 03/22/2019 07:50:15copy to: Meliton Amado MD, ph: [phone], fax: [phone] Technologist: Mana MATOS, Emerson Aburto [facility] Imaging-FWletter sent: Additional Imaging Mammogram BI-RADS: 0 Incomplete: Additional Imaging Evaluation Needed
--- OUTSIDE RECORDS SUMMARY | 2019-10-03 19:39 | XMS REPORT | Continuity of Care Document ---
Author Author [employer] JOHNNY [facility] [employer] TeamPages Address Unknown Phone Unavailable Care Team Providers Care Financial Management Consultant Name Role Phone [facility] [employer] Unavailable Un available Problems Problem Status Onset Date Classification Date Reported Comments Source SOB Active 0 08/24/2016 [facility] FINGER LACERATION Active 12/07/2011 [place] Scoliosis, unspecified 08/28/2016 [facility] Shortness of breath 08/28/2016 [facility] Medications Medication Details Route Status Patient Instructions Ordering Provider Order Date Source tetanus-diphtheria toxoids adult intramu scular suspension 0.5 ml, Route: IM, Dosing Weight 72.727, kg, ONCE, STAT, Start date: 12/07/11 17:18:00, Stop date: 12/07/11 17:18:00 IM No Longer Active Amado 12/07/2011 [facility] Tdap 0.5 mL, Route: IM, Dosing Weight 72.727, kg, ONCE, Start date: 12/07/11 17:02:00, Stop date: 12/07/11 17:02:00 IM No Longer Active Amado 12/07/2011 [facility] Allergies, Adverse Reactions, Alerts Substance Category Reaction Severity Reaction type Status Date Reported Comments Source No Known Medication Allergies Assertion Drug aller gy CONNIE Monet Immunizations Immunization Date Given Site Status Last Updated Comments Source tetanus-diphtheria toxoids 02/2011 completed F agan [facility] tetanus-diphtheria toxoids 02/2011 Left Deltoid completed Jose [facility] tetanus-diphtheria toxoids 02/2011 Left Deltoid completed Jose [facility] [place] Results No Data Provided for This Section Pathology Reports No Data Provided for This Section Diagnostic Reports Report Value Date Source Chest 2 views DX EXAM: XR CHES T 2 VIEWS DATE: 09/26/2019 9:20 CDT INDICATION: - J98.01 Acute bronchospasm COMPARISON: 08/25/2016 TECHNIQUE: PA and lateral chest radiographs. FINDINGS: Lines, tubes and hardware: None. Lungs and pleura: There is no evidence of focal pulmonary consolidation. No pleural effusion or pneumothorax. Heart and mediastinum: The heart size is normal. The mediastinal contours are normal. Pulmonary vascularity is normal. Bones: No acute abnormality. There is an advanced leftward scoliotic curvature of the upper thoracic spine that is unchanged from prior. IMPRESSION: No evidence of acute cardiopulmonary abnormality. 09/26/2019 [facility] [place] Hand 3 views DX EXAM: Hand 3 v iews DX HISTORY: - M79.641 Pain in right hand COMPARISON: None 3 views of the right hand. No fracture or dislocation is seen. No radiographically apparent degenerative change is seen. IMPRESSION: No acute abnormality. 01/31/2019 [facility] [place] Chest 2 views DX Study: Chest 2 views DX 08/25/2016 10:30 AM CDT Clinical Indication: shortness of breath - shortness of breath; Comparison: None. FINDINGS: Rotoscoliosis. The cardiomediastinal silhouette and pulmonary vasculature are within normal limits for projection and degree of inspiration. No lobar consolidation, effusion, or pneumothorax. No pleural abnormalities are seen. No acute bony abnormalities. IMPRESSION: No acute intrathoracic abnormalities. SL: [id number] 08/25/2016 [facility] Consultation Notes No Data Provided for This Section Discharge Summaries No Data Provided for This Section History and Physicals No Data Provided for This Section Vital Signs Vital Sign Value Date Comments Source Weight 72.727 12/07/2011 [facility] Height 152.40 cm 12/07/2011 [facility] Encounters Location Location Details Encounter Type Encounter Number Reason For Visit Attending Provider ADM Date DC Date Status Source [facility] Emergency [id number] COCO KHAN 12/07/2011 12/07/2011 Discharged [facility] Outpatient [id number] Pavan Johnson 08/25/2016 08/26/2016 [facility] [place] [facility] [id number] Zach Cohn 01/31/2019 02/01/2019 [facility] [place] [facility] [place] [facility] [id number] Zach Cohn 09/26/2019 09/27/2019 [facility] [place] Procedures No Data Provided for This Section Assessment and Plan No Data Provided for This Section Plan of Care No Data Provided for This Section Social History Social History Date Source No data available for this section 09/27/2019 CONNIE Monet No data available for this section 08/26/2016 [facility] Family History No Data Provided for This Section Advance Directives No Data Provided for This Section Functional Status No Data Provided for This Section
[2019-10-03] MEDS ORDERED: ACETAMINOPHEN 325 MG TAB PO ONE (20:15)
[2019-10-03 20:59] VITALS: BP 95/67
--- NOTE | 2019-10-04 03:46 | Emergency Department Note ---
History of Present Illnes History of Present Illness Chief Complaint: General Medicine Complaints History of Present Illness This is a 49 year old female presents with Fever. Diagnosed with UTI at PCP office yesterday: told "3 times the value of an UTI". Started Cipro 12hrs ago. Denies N/V/D, rash, sore throat, congestion, cough, loss of taste/smell, abdominal pain. Has mild right sided frontal headache and right sided neck pain. No numbness, tingling, weakness, confusion, vision problems, dizziness. Diagnosed with COVID 08/18/19 with symptoms requiring hospitalization. First negative COVID test Sep 05, with 2nd negative COVID test when admitted on 09/09/19 for pneumonia. Took APAP @ 1500, but fever returned this evening so came to ED. Has not had Ibuprofen. Historian: Patient Arrival Mode: Car Health And Wellness Manager Required: No Onset (how long ago): day(s) (1) Duration (how long): day(s) (1) Progression: waxing and waning Context: Reports recent illness; Denies recent travel, Denies trauma/injury Relieving factors: other (APAP) Exacerbating factors: none Associated symptoms: Reports fever/chills, Reports headaches; Denies loss of appetite, Denies malaise, Denies nausea/vomiting, Denies shortness of breath, Denies weakness Treatments prior to arrival: other (APAP) Past Medical/Family History Physician Review I have reviewed the patient's past medical and family history. Any updates have been documented here. Past Medical History Recent Fever: Yes (SINCE 3PM TODAY) Clinical Suspicion of Infectio: No New/Unexplained Change in Ment: No Past Medical History: Asthma Other Medical History: HIGH CHOL. Past Surgical History: T&A Social History Smoking Cessation: Never Smoker Alcohol Use: None Any Illegal Drug Use: No Physically hurt or threatened: No Other Any Pre-Existing Lines (PICC,: No Review of Systems Review of Systems Constitutional: Reports chills, Reports fever; Denies malaise, Denies weakness EENTM: Reports no symptoms; Denies ear discharge, Denies nose pain, Denies nose congestion, Denies throat pain Cardiovascular: Denies chest pain, Denies palpitations Respiratory: Denies chest congestion, Denies cough, Denies hemoptysis, Denies pain on inspiration, Denies pain with cough, Denies dyspnea, Denies dyspnea on exertion Gastrointestinal: Denies abdominal pain, Denies constipation, Denies diarrhea, Denies nausea, Denies vomiting Genitourinary: Reports other (mild left flank pain) Musculoskeletal: Reports no symptoms Integumentary: Reports no symptoms Neurological: Reports headache Psychological: Reports no symptoms Endocrine: Reports no symptoms Physical Exam Related Data Allergies: Coded Allergies: No Known Allergies (Unverified , 08/24/19) Triage Vital Signs Vital Signs Date Time Temp Pulse Resp B/P (MAP) Pulse Ox O2 Delivery O2 Flow Rate FiO2 10/03/19 19:15 103.8 135 18 117/79 99 Room Air Physical Exam CONSTITUTIONAL Constitutional: Present well-developed, Present well-nourished, Present other (non-toxic appearing); Absent diaphoretic, Absent ill appearing HENT HENT: Present normocephalic, Present atraumatic, Present oropharynx clear/moist, Present oropharynx normal, Present nose normal; Absent nasal discharge, Absent nasal congestion, Absent rhinorrhea, Absent oropharyngeal exudate HENT L/R: Present left ext ear normal, Present right ext ear normal EYES Eyes: Reports PERRL, Reports conjunctivae normal; Denies left eye discharge, Denies right eye discharge NECK Neck: Present ROM normal, Present supple, Present other (no Kernig's sign, no Brudzinski sign); Absent cervical adenopathy PULMONARY Pulmonary: Present effort normal, Present breath sounds normal CARDIOVASCULAR Cardiovascular: Present regular rhythm, Present heart sounds normal, Present capillary refill normal, Present normal rate GASTROINTESTINAL Abdominal: Present soft, Present nontender, Present bowel sounds normal GENITOURINARY Genitourinary: Present exam deferred SKIN Skin: Absent rash, Absent jaundiced MUSCULOSKELETAL Musculoskeletal: Present ROM normal NEUROLOGICAL Neurological: Present alert, Present oriented x 3, Present no gross motor or sensory deficits PSYCHOLOGICAL Psychological: Present mood/affect normal, Present judgement normal Results Laboratory Laboratory comments UA: Negative nit, small bonnie, mod blood. Assessment & Plan Medical Decision Making MDM Differential dx includes, but is not limited to UTI, pylonephritis, meningitis, encephalitis, COVID, mono, viral illness. UA here with neg nitrate, small bonnie, and mod blood. However on Cipro which would be expected to improve from ++ UA results @ PCP office. Patient also with left CVA tenderness. Patient denies any other possible febrile source except for mild headache and neck pain which resolved with ibuprofen/APAP. Spoke with patient about LP and offered patient spinal tap and patient declined. Fever & HR improved in ED. Patient requested to leave while being observed to see if HR and fever improve. HR improved to 110, but patient unwilling to stay to continue observation. Patient made aware that elevated HR that does not improve with treatment of fever may result in further tests/. Will treat as outpatient as appears urine improving on antibiotics. Strict return instructions given especially for meningitis, encephalitis, and p ylonephritis and patient to have prompt followup. Reassessment Reassessment continued non-toxic appearance in ED. HR and fever improved (110 and 100.7 respectively) with ibuprofen and APAP. Assessment & Plan Final Impression: (1) UTI (urinary tract infection) Depart Disposition: HOME, SELF-CARE Last Vital Signs Date Time Temp Pulse Resp B/P (MAP) Pulse Ox O2 Delivery O2 Flow Rate FiO2 10/03/19 19:15 103.8 135 18 117/79 99 Room Air Home Meds Active Scripts Dexamethasone (DEXAMETHASONE) 4 Mg Tablet, 6 MG PO BID for 3 Days, #3 TAB 0 Refills Prov:SHERMAN TRAYLOR NP 09/11/19 Azithromycin (Z-CORINNE) 250 Mg Tablet, 250 MG PO TRIPACK DIRECTED, #1 PKT 0 Refills Prov:SHERMAN TRAYLOR NP 09/10/19 Acetaminophen (ACETAMINOPHEN) 325 Mg Tablet, 650 MG PO Q6H PRN for Mild Pain (1- 3) or Fever>100.8 for 30 Days, #60 TAB 0 Refills Prov:SHERMAN TRAYLOR NP 09/10/19 Ascorbic Acid (ASCORBIC ACID) 500 Mg Tablet, 1000 MG PO BID for 30 Days, #120 TAB 0 Refills Prov:SHERMAN TRAYLOR NP 09/10/19 Benzonatate (TESSALON PERLE) 100 Mg Capsule, 100 MG PO TID PRN for COUGH for 30 Days, #90 CAP 0 Refills Prov:SHERMAN TRAYLOR NP 09/10/19 [Cholecalciferol] 400 UNIT TAB No Conflict Check, 400 UNIT PO DAILY for 30 Days, #30 TAB 0 Refills Prov:SHERMAN TRAYLOR NP 09/10/19 Ipratropium/Albuterol Sulfate (COMBIVENT RESPIMAT INHAL SPRAY) 4 Gm Aer.w.adap, 1 GM INH RBID for 30 Days, #2 INH 0 Refills Prov:LAYTON,HUGH Tia CLEANING MACHINE OPERATOR 09/10/19 Zinc Sulfate (ZINC SULFATE) 220 Mg Capsule, 220 MG PO BID for 30 Days, #60 CAP 0 Refills Prov:SHERMAN TRAYLOR Tia CLEANING MACHINE OPERATOR 09/10/19 Reported Medications Cetirizine Hcl (CETIRIZINE HCL) 5 Mg Tablet, 10 MG PO DAILY 09/09/19 Albuterol Sulfate (PROVENTIL HFA) 6.7 Gm Hfa.aer.ad, 1 INH INH TID PRN for SHORTNESS OF BREATH, INH 09/09/19 Medications in the ED Ibuprofen 800 mg ONCE ONCE PO Last administered on 10/03/19at 19:33; Admin Dose 800 MG; Start 10/03/19 at 19:30; Stop 10/03/19 at 19:36; Status DC and APAP VIKAS KIMBROUGH MD Oct 03, 2019 20:29
== END 2019-10-03 21:00 | disposition home or self-care (01) ==
LOC: FSED 19:37
DX: N39.0 Urinary tract infection, site not specified (principal); R50.9 Fever, unspecified; J45.909 Unspecified asthma, uncomplicated; E78.00 Pure hypercholesterolemia, unspecified
CPT/HCPCS: 81003; 99283

== ENCOUNTER 2020-12-11 19:51 | Emergency (ER) | payer OTHER ==
[~2020-12-11] VITALS: Ht 152.4 cm; Wt 81.6 kg
[2020-12-11] MEDS ORDERED: MEDROL4 MG PO (21:02)
[2020-12-11] MEDS ORDERED: SKELAXIN800 MG PO (21:04)
[2020-12-11] MEDS ORDERED: ULTRAM 50MG50 MG PO (21:05)
[2020-12-11 21:16] VITALS: BP 136/88
== END 2020-12-11 21:17 | disposition home or self-care (01) ==
LOC: FSED 20:03
DX: M54.6 Pain in thoracic spine (principal); J45.909 Unspecified asthma, uncomplicated
CPT/HCPCS: 71046; 81025; 99283

== ENCOUNTER 2021-02-03 11:00 | Emergency (ER) | payer OTHER ==
[~2021-02-03] VITALS: Ht 152.4 cm; Wt 78.9 kg
[~2021-02-03 11:00] MED LIST changes: +MEDROL4 MG PO; +SKELAXIN800 MG PO; +ULTRAM 50MG50 MG PO
[2021-02-03] MEDS ORDERED: MECLIZINE HCL 12.5 MG TAB PO ONE (12:30)
[2021-02-03] MEDS ORDERED: MECLIZINE HCL12.5 MG PO (12:32)
== END 2021-02-03 13:09 | disposition home or self-care (01) ==
LOC: FSED 11:03
DX: H81.399 Other peripheral vertigo, unspecified ear (principal)
CPT/HCPCS: 99282

== ENCOUNTER 2021-11-11 15:48 | Emergency (ER) | payer OTHER ==
[~2021-11-11] VITALS: Ht 152.4 cm; Wt 68.5 kg
[~2021-11-11 15:48] MED LIST changes: +MECLIZINE HCL12.5 MG PO
[2021-11-11] MEDS ORDERED: MACROBID 100 M100 MG PO (16:50)
[2021-11-11] MEDS ORDERED: PYRIDIUM200 MG PO (16:50)
== END 2021-11-11 17:38 | disposition home or self-care (01) ==
LOC: FSED 16:34
DX: N30.90 Cystitis, unspecified without hematuria (principal); J45.909 Unspecified asthma, uncomplicated; E78.5 Hyperlipidemia, unspecified; R10.9 Unspecified abdominal pain
CPT/HCPCS: 81003; 99282

== ENCOUNTER 2021-11-18 17:21 | Emergency (ER) | payer OTHER ==
[~2021-11-18] VITALS: Ht 152.4 cm; Wt 68.5 kg
[~2021-11-18 17:21] MED LIST changes: +MACROBID 100 M100 MG PO; +PYRIDIUM200 MG PO
[2021-11-18] MEDS ORDERED: SODIUM CHLORIDE 0.9% 1000ML 1,000 ML IV STA (17:50)
[2021-11-18] MEDS ORDERED: KETOROLAC TROMETHAMINE 30 MG/ML VIAL IV STA (17:50)
[2021-11-18] MEDS ORDERED: SODIUM CHLORIDE 0.9% 1000ML 1,000 ML ONE (18:11)
[2021-11-18] MEDS ORDERED: CEFTRIAXONE 1 GM VIAL ONE (18:11)
[2021-11-18] MEDS ORDERED: KETOROLAC TROMETHAMINE 30 MG/ML VIAL ONE (18:11)
[2021-11-18] MEDS ORDERED: CEPHALEXIN500 MG PO (19:00)
[2021-11-18] MEDS ORDERED: FLOMAX0.4 MG PO (19:04)
== END 2021-11-18 19:38 | disposition home or self-care (01) ==
LOC: FSED 18:16
DX: R10.30 Lower abdominal pain, unspecified (principal); N20.0 Calculus of kidney; N39.0 Urinary tract infection, site not specified; Q63.1 Lobulated, fused and horseshoe kidney; E78.5 Hyperlipidemia, unspecified; J45.909 Unspecified asthma, uncomplicated
CPT/HCPCS: 74176; 80053; 81003; 85025; 96374; 99284; J0696; J1885; J7030

== ENCOUNTER 2021-12-10 17:01 | Observation (INO) | payer SELFPAY ==
[~2021-12-10] VITALS: Ht 152.4 cm; Wt 64.9 kg
[~2021-12-10 17:01] MED LIST changes: +CEPHALEXIN500 MG PO; +FLOMAX0.4 MG PO
[2021-12-10] MEDS ORDERED: ASPIRIN 325 MG TAB PO ONE (17:30)
[2021-12-10] MEDS ORDERED: ONDANSETRON HCL INJ 2MG/ML 2ML 2 MG/ML VIAL IV STA (17:35)
[2021-12-10] MEDS ORDERED: ASPIRIN 325 MG TAB ONE (18:13)
[2021-12-10] MEDS ORDERED: Morphine 4mg INJECTION 4 MG/ML INJ IV PRN (18:30)
[2021-12-10] MEDS ORDERED: ONDANSETRON HCL INJ 2MG/ML 2ML 2 MG/ML VIAL IV PRN (18:30)
[2021-12-10] MEDS ORDERED: ASPIRIN 81 MG CHEW TAB PO ONE (18:30)
[2021-12-10] MEDS ORDERED: ONDANSETRON HCL INJ 2MG/ML 2ML 2 MG/ML VIAL ONE (18:31)
[2021-12-10] MEDS ORDERED: ALBUTEROL SULFATE HFA 8GM INHALATION AEROSOL INH PRN (19:45)
[2021-12-10 20:27] VITALS: BP 131/81
[2021-12-10 20:30] VITALS: BP 131/81
[2021-12-10 20:54] LABS: CREATINE KINASE 49 IU/L (29-168)
[2021-12-10 21:00] VITALS: BP 131/81
[2021-12-10 21:18] LABS: CHOL/HDL RATIO 3.6 (3.0-3.6)
[2021-12-10] MEDS: ACETAMINOPHEN 325 MG TAB PO PRN (22:09)
[2021-12-11] VITALS: BP 109/76
[2021-12-11 04:00] VITALS: BP 91/61
[2021-12-11] MEDS ORDERED: FAMOTIDINE 20 MG TAB PO SCH (07:30)
[2021-12-11 08:01] VITALS: BP 109/74
[2021-12-11 08:52] LABS: BASOPHILS % 0.6 % (0.0-1.0); EOSINOPHILS # (AUTO) 0.1 (0.0-0.4); EOSINOPHILS % 0.9 % (0.0-6.0); HEMATOCRIT 37.5 % (34.2-44.1); HEMOGLOBIN 12.4 g/dL (12.0-16.0); LYMPHOCYTES # (AUTO) 2.3 (1.0-3.2); LYMPHOCYTES % 43.4 % (18.0-39.1); MEAN CORPUSCULAR HEMOGLOBIN 32.5 pg (28-32); MEAN CORPUSCULAR HGB CONC 33.1 g/dL (31-35); MEAN CORPUSCULAR VOLUME 98.4 fL (81-99); MONOCYTES # (AUTO) 0.4 (0.2-0.8); MONOCYTES % 7.2 % (4.4-11.3); NEUTROPHILS # (AUTO) 2.6 (2.1-6.9); NEUTROPHILS % 47.5 % (38.7-80.0); PLATELET COUNT 221 x10e3/uL (140-360); RED BLOOD COUNT 3.81 x10e6/uL (3.6-5.1); RED CELL DISTRIBUTION WIDTH 12.1 % (11.7-14.4)
[2021-12-11 08:59] VITALS: BP 109/74
[2021-12-11] MEDS ORDERED: LORATADINE 10 MG TAB PO SCH (09:00)
[2021-12-11] MEDS ORDERED: ASPIRIN 325 MG TAB PO SCH (09:00)
[2021-12-11 09:07] LABS: ALBUMIN 3.6 g/dL (3.5-5.0); ALBUMIN/GLOBULIN RATIO 1.3 (0.8-2.0); ANION GAP 14.9 mmol/L (8-16); CALCIUM 8.8 mg/dL (8.4-10.2); CREATININE, SERUM 0.73 mg/dL (0.57-1.11); POTASSIUM 3.9 mmol/L (3.5-5.1)
[2021-12-11] MEDS: ACETAMINOPHEN 325 MG TAB PO PRN (09:10)
[2021-12-11 09:15] LABS: CREATINE KINASE MB 0.3 ng/mL (0-5.0)
== END 2021-12-11 11:00 | disposition home or self-care (01) ==
LOC: FSED 17:15 → ERHOLD 18:28 → MED/SURG 19:53
PROVIDERS: ADMIT Internal Medicine; ATTEND Internal Medicine
DX: R07.89 Other chest pain (principal); J45.909 Unspecified asthma, uncomplicated; Z86.16 Personal history of COVID-19
CPT/HCPCS: 36415 ×2; 71046; 80053 ×2; 80061; 82550 ×2; 82553 ×2; 83880; 84484 ×2; 85025 ×2; 85610; 93005; 94799; 99284; G0378 ×2; J2405; U0002

== ENCOUNTER 2022-04-15 16:23 | Emergency (ER) | payer OTHER ==
[~2022-04-15] VITALS: Ht 152.4 cm; Wt 65.8 kg
[2022-04-15] MEDS ORDERED: SODIUM CHLORIDE 0.9% 100 ML ONE (18:16)
[2022-04-15] MEDS ORDERED: IOPAMIDOL 370 MG/ML 100 ML INFUS..BTL INJ ONE (18:17)
[2022-04-15] MEDS ORDERED: ONDANSETRON HCL INJ 2MG/ML 2ML 2 MG/ML VIAL IV STA (18:53)
[2022-04-15] MEDS ORDERED: ONDANSETRON HCL INJ 2MG/ML 2ML 2 MG/ML VIAL ONE (19:42)
[2022-04-15 20:25] VITALS: BP 141/69
== END 2022-04-15 20:25 | disposition home or self-care (01) ==
LOC: FSED 16:36
DX: R20.2 Paresthesia of skin (principal); M54.2 Cervicalgia; J45.909 Unspecified asthma, uncomplicated; E78.5 Hyperlipidemia, unspecified; Z79.899 Other long term (current) drug therapy
CPT/HCPCS: 70450; 70496; 70498; 80053; 81003; 82553; 84484; 85025; 93005; 99283; J2405; J7050; Q9967

== ENCOUNTER 2023-02-21 17:52 | Emergency (ER) | payer OTHER ==
[~2023-02-21] VITALS: Ht 152.4 cm; Wt 65.8 kg
[2023-02-21] MEDS ORDERED: KETOROLAC TROMETHAMINE 30 MG/ML VIAL IV STA (18:05)
[2023-02-21] MEDS ORDERED: SODIUM CHLORIDE 0.9% 1000ML 1,000 ML IV ONE (18:15)
[2023-02-21] MEDS ORDERED: ONDANSETRON ODT4 MG PO (18:50)
[2023-02-21] MEDS ORDERED: CEFPODOXIME PR100 MG PO (18:51)
[2023-02-21] MEDS ORDERED: HYDROCODON-ACE1 EA11 PO (18:54)
[2023-02-21 19:15] VITALS: BP 135/73; PULSE 85; RESP 18; TEMP 97.9; O2SAT 100
== END 2023-02-21 19:15 | disposition home or self-care (01) ==
LOC: FSED 17:55
DX: R10.30 Lower abdominal pain, unspecified (principal); N20.0 Calculus of kidney; E78.5 Hyperlipidemia, unspecified; E78.00 Pure hypercholesterolemia, unspecified; J45.909 Unspecified asthma, uncomplicated; Q63.1 Lobulated, fused and horseshoe kidney
CPT/HCPCS: 74176; 99284; J1885; J7030